=== PATIENT | male | born 1965 | race Caucasian/White ===

== ENCOUNTER 2016-09-18 11:07 | Emergency (ER) | payer MEDICAID ==
[~2016-09-18] VITALS: Ht 170.2 cm; Wt 65.0 kg
[~2016-09-18 11:07] MED LIST: HYDR-519 PO; LORA1TAB PO; NAP5EC PO; QUET50TA11 PO
[2016-09-18 11:23] VITALS: BP 110/71
== END 2016-09-18 15:51 | disposition left against medical advice (07) ==
LOC: EDBD → ER 12:27
DX: R52 Pain, unspecified (principal); Z53.21 Procedure and treatment not carried out due to patient leaving prior to being seen by health care provider

== ENCOUNTER 2016-09-19 18:36 | Emergency (ER) | payer MEDICAID ==
[~2016-09-19] VITALS: Ht 170.2 cm; Wt 64.0 kg
[2016-09-19] MEDS ORDERED: IBUPROFEN 600MG TABLET PO ONE (21:30)
[2016-09-19 22:30] VITALS: BP 118/73
== END 2016-09-19 22:31 | disposition home or self-care (01) ==
LOC: ER 20:32
DX: G89.29 Other chronic pain (principal); Z76.5 Malingerer [conscious simulation]; Z79.899 Other long term (current) drug therapy; I10 Essential (primary) hypertension; E11.9 Type 2 diabetes mellitus without complications; F41.9 Anxiety disorder, unspecified; F32.9 Major depressive disorder, single episode, unspecified; F12.10 Cannabis abuse, uncomplicated
CPT/HCPCS: 99282; 99283

== ENCOUNTER 2016-10-23 05:04 | Emergency (ER) | payer MEDICAID ==
[~2016-10-23] VITALS: Ht 170.2 cm; Wt 66.0 kg
[2016-10-23 05:13] VITALS: BP 164/115
== END 2016-10-23 05:52 | disposition left against medical advice (07) ==
LOC: ER 05:05
DX: Z53.21 Procedure and treatment not carried out due to patient leaving prior to being seen by health care provider (principal)

== ENCOUNTER 2016-10-28 03:26 | Emergency (ER) | payer MEDICAID ==
[~2016-10-28] VITALS: Ht 170.2 cm; Wt 66.8 kg
[2016-10-28 03:36] VITALS: BP 128/81
== END 2016-10-28 04:32 | disposition left against medical advice (07) ==
LOC: ER 03:26
DX: Z76.0 Encounter for issue of repeat prescription (principal); Z53.21 Procedure and treatment not carried out due to patient leaving prior to being seen by health care provider

== ENCOUNTER 2016-11-08 02:41 | Emergency (ER) | payer MEDICAID ==
[~2016-11-08] VITALS: Ht 170.2 cm; Wt 67.0 kg
[2016-11-08 03:27] VITALS: BP 120/75
== END 2016-11-08 03:30 | disposition left against medical advice (07) ==
LOC: ER 02:42
DX: M79.605 Pain in left leg (principal); I10 Essential (primary) hypertension; F12.10 Cannabis abuse, uncomplicated

== ENCOUNTER 2016-11-16 20:27 | Inpatient (IN) | payer MEDICAID, OTHER ==
[~2016-11-16] VITALS: Ht 170.2 cm; Wt 77.1 kg
[2016-11-16] MEDS ORDERED: IBUPROFEN 600MG TABLET PO ONE (21:30)
[2016-11-16 22:00] LABS: HEMATOCRIT. 27.3 % (42.0-52.0); HEMOGLOBIN. 8.8 g/dL (14.0-18.0); MEAN CORPUSCULAR HEMOGLOBIN 26.5 pg (28.0-32.0); MEAN CORPUSCULAR VOLUME 81.9 fL (80.0-94.0); MEAN PLATELET VOLUME 7.2 fl (7.4-10.4); RED BLOOD CELL COUNT 3.33 mill/uL (4.7-6.1)
[2016-11-16 22:02] LABS: PLATELET 1116 x1000/uL (130-400)
[2016-11-16 22:16] LABS: CARBON DIOXIDE 31 mEq/L (21-32); CHLORIDE 99 mEq/L (98-107); CREATINE KINASE MB FRACTION 1.7 ng/mL (0.5-3.6); ETHANOL BLOOD < 10 mg/dL
[2016-11-16 23:08] LABS: NUCLEATED RED BLOOD CELLS 7 /100 WBC; PLATELET ESTIMATE MARKEDLY INCREASED
[2016-11-16] MEDS ORDERED: SODIUM CHLORIDE 0.9% 1,000 ML IV ONE (23:15)
[2016-11-17] VITALS (7 sets, daily range): BP systolic 114–151; BP diastolic 75–99
[2016-11-17] MEDS ORDERED: MORPHINE SULFATE 2 MG/ML CPJ (NOT FOR IM USE) IV PRN (06:45)
[2016-11-17 09:09] LABS: PROTHROMBIN TIME 10.6 sec
[2016-11-17 09:24] LABS: HEMATOCRIT. 31.1 % (42.0-52.0); MEAN CORPUSCULAR HEMOGLOBIN 26.6 pg (28.0-32.0); MEAN CORPUSCULAR VOLUME 82.7 fL (80.0-94.0); MEAN PLATELET VOLUME 7.5 fl (7.4-10.4); RED BLOOD CELL COUNT 3.76 mill/uL (4.7-6.1); RED CELL DISTRIBUTION WIDTH 16.9 % (11.6-14.6)
[2016-11-17 09:25] LABS: CARBON DIOXIDE 30 mEq/L (21-32); CHLORIDE 101 mEq/L (98-107)
[2016-11-17] MEDS ORDERED: ALBU18HF2 * (09:25)
[2016-11-17] MEDS ORDERED: NIFE30TA94 PO (09:31)
[2016-11-17] MEDS ORDERED: HYDR-4134 PO (09:31)
[2016-11-17 10:28] LABS: NUCLEATED RED BLOOD CELLS 4 /100 WBC
[2016-11-17 10:30] LABS: PLATELET ESTIMATE MARKEDLY INCREASED
[2016-11-17 10:31] LABS: PLATELET 1171 x1000/uL (130-400)
[2016-11-17] MEDS: HYDROCODONE/ACETAMINOPHEN 10/325MG TABLET PO PRN ×2 (14:21→21:15)
[2016-11-17] MEDS: FAMOTIDINE 20MG TABLET PO SCH ×2 (17:24→21:13)
[2016-11-18] MEDS: HYDROCODONE/ACETAMINOPHEN 10/325MG TABLET PO PRN ×3 (03:51→23:28)
[2016-11-18 04:00] VITALS: BP 107/79
[2016-11-18 04:24] LABS: CLARITY URINE CLEAR (CLEAR); COLOR URINE YELLOW (YELLOW); GLUCOSE URINE NEGATIVE (NEGATIVE); KETONES URINE NEGATIVE (NEGATIVE); LEUKOCYTE ESTERASE URINE NEGATIVE (NEGATIVE); NITRITE URINE NEGATIVE (NEGATIVE); OCCULT BLOOD URINE NEGATIVE (NEGATIVE); PH URINE 7.5 (4.5-8.0); PROTEIN URINE NEGATIVE (NEGATIVE); SPECIFIC GRAVITY URINE 1.012 (1.005-1.030); UROBILINOGEN URINE 0.2 E.U./dL (0.2-1.0)
[2016-11-18 05:02] LABS: *AMPHETAMINES SCREEN URINE NEGATIVE (NEGATIVE); *BARBITURATES SCREEN URINE NEGATIVE (NEGATIVE); *BENZODIAZEPINES SCREEN URINE NEGATIVE (NEGATIVE); *COCAINE SCREEN URINE NEGATIVE (NEGATIVE); METHADONE URINE SCREEN NEGATIVE (NEGATIVE); OPIATES URINE SCREEN PRESUMTIVE POSITIVE (NEGATIVE); PHENCYCLIDINE URINE SCREEN NEGATIVE (NEGATIVE)
[2016-11-18 05:04] LABS: CANNABINOID URINE SCREEN NEGATIVE (NEGATIVE)
[2016-11-18 08:00] VITALS: BP 95/74
[2016-11-18] MEDS: FAMOTIDINE 20MG TABLET PO SCH ×2 (08:14→20:43)
[2016-11-18 12:00] VITALS: BP 111/92
[2016-11-18 12:09] LABS: HEMATOCRIT. 32.3 % (42.0-52.0); HEMOGLOBIN. 10.3 g/dL (14.0-18.0); MEAN CORPUSCULAR HEMOGLOBIN 26.6 pg (28.0-32.0); MEAN CORPUSCULAR VOLUME 83.3 fL (80.0-94.0); MEAN PLATELET VOLUME 7.4 fl (7.4-10.4); RED BLOOD CELL COUNT 3.88 mill/uL (4.7-6.1); RED CELL DISTRIBUTION WIDTH 16.9 % (11.6-14.6)
[2016-11-18 12:27] LABS: CHLORIDE 98 mEq/L (98-107)
[2016-11-18 12:32] LABS: PLATELET 1307 x1000/uL (130-400)
[2016-11-18 12:34] LABS: CARBON DIOXIDE 32 mEq/L (21-32)
[2016-11-18] MEDS: SODIUM CHLORIDE 0.9% 1,000 ML IV SCH (13:43)
[2016-11-18 14:09] LABS: NUCLEATED RED BLOOD CELLS 4 /100 WBC; PLATELET ESTIMATE MARKEDLY INCREASED
[2016-11-18 16:00] VITALS: BP 116/85
[2016-11-18 20:00] VITALS: BP 114/87
[2016-11-18] MEDS: MORPHINE SULFATE 2 MG/ML CPJ (NOT FOR IM USE) IV PRN (20:48)
[2016-11-19] VITALS: BP 148/97
[2016-11-19] MEDS: MORPHINE SULFATE 2 MG/ML CPJ (NOT FOR IM USE) IV PRN (01:04)
[2016-11-19 04:00] VITALS: BP 146/94
[2016-11-19 08:00] VITALS: BP 133/87
[2016-11-19] MEDS: FAMOTIDINE 20MG TABLET PO SCH (09:15)
[2016-11-19] MEDS: HYDROCODONE/ACETAMINOPHEN 10/325MG TABLET PO PRN ×3 (09:16→21:48)
[2016-11-19 12:00] VITALS: BP 132/86
[2016-11-19 16:00] VITALS: BP 122/87
[2016-11-19 20:00] VITALS: BP 138/92
[2016-11-19] MEDS: SODIUM CHLORIDE 0.9% 1,000 ML IV SCH (21:50)
[2016-11-20] VITALS: BP 147/104
[2016-11-20 04:00] VITALS: BP 148/104
[2016-11-20] MEDS: HYDROCODONE/ACETAMINOPHEN 10/325MG TABLET PO PRN ×4 (04:14→22:49)
[2016-11-20 08:00] VITALS: BP 135/91
[2016-11-20] MEDS: FAMOTIDINE 20MG TABLET PO SCH ×2 (09:25→21:16)
[2016-11-20] MEDS: SODIUM CHLORIDE 0.9% 1,000 ML IV SCH ×2 (09:25→18:57)
[2016-11-20 12:00] VITALS: BP 137/93
[2016-11-20 16:00] VITALS: BP 125/94
[2016-11-20 20:00] VITALS: BP 124/97
[2016-11-21] VITALS: BP 145/100
[2016-11-21 04:00] VITALS: BP 122/77
[2016-11-21] MEDS: HYDROCODONE/ACETAMINOPHEN 10/325MG TABLET PO PRN ×2 (04:38→12:06)
[2016-11-21] MEDS: SODIUM CHLORIDE 0.9% 1,000 ML IV SCH (04:41)
[2016-11-21 08:00] VITALS: BP 124/97
[2016-11-21] MEDS: FAMOTIDINE 20MG TABLET PO SCH (09:39)
[2016-11-21 12:00] VITALS: BP 153/100
[2016-11-21 14:56] VITALS: BP 153/100
== END 2016-11-21 15:40 | disposition home or self-care (01) | DRG 384 ==
LOC: ER 21:10 → 6EST 23:24
PROVIDERS: ADMIT Internal Medicine; ATTEND Internal Medicine
DX: S90.02XA Contusion of left ankle, initial encounter (principal); C95.90 Leukemia, unspecified not having achieved remission; E11.9 Type 2 diabetes mellitus without complications; I10 Essential (primary) hypertension; D47.3 Essential (hemorrhagic) thrombocythemia; F10.20 Alcohol dependence, uncomplicated; F17.210 Nicotine dependence, cigarettes, uncomplicated; K21.9 Gastro-esophageal reflux disease without esophagitis; R31.9 Hematuria, unspecified; R60.9 Edema, unspecified; F12.90 Cannabis use, unspecified, uncomplicated; M19.90 Unspecified osteoarthritis, unspecified site; Z60.2 Problems related to living alone; W19.XXXA Unspecified fall, initial encounter; Z71.51 Drug abuse counseling and surveillance of drug abuser; Z59.0 Homelessness; Z79.82 Long term (current) use of aspirin; Z87.442 Personal history of urinary calculi; Y93.89 Activity, other specified; Y92.89 Other specified places as the place of occurrence of the external cause; Y99.8 Other external cause status
CPT/HCPCS: 36415; 73590; 73610; 76770; 80048; 80053; 80305; 80307; 81003; 82553; 85025; 85610; 87086; 87186; 93971; 96361; 96374; 97162; 99285; A6261; G0482; J2270; J7030

== ENCOUNTER 2016-12-09 01:18 | Emergency (ER) | payer OTHER ==
[~2016-12-09] VITALS: Ht 160 cm; Wt 65.0 kg
[~2016-12-09 01:18] MED LIST changes: +ALBU18HF2 *; +HYDR-4134 PO; +NIFE30TA94 PO
[2016-12-09] MEDS ORDERED: HYDROCODONE/ACETAMINOPHEN 5/325MG TABLET PO ONE (04:15)
[2016-12-09 05:37] VITALS: BP 119/76
== END 2016-12-09 06:18 | disposition home or self-care (01) ==
LOC: ER 01:18
DX: Z76.0 Encounter for issue of repeat prescription (principal); G89.29 Other chronic pain
CPT/HCPCS: 99283

== ENCOUNTER 2016-12-10 00:17 | Emergency (ER) | payer OTHER ==
[~2016-12-10] VITALS: Ht 170.2 cm; Wt 65.0 kg
[2016-12-10 04:49] LABS: CLARITY URINE CLEAR (CLEAR); COLOR URINE YELLOW (YELLOW); GLUCOSE URINE NEGATIVE (NEGATIVE); KETONES URINE NEGATIVE (NEGATIVE); LEUKOCYTE ESTERASE URINE 1+ (NEGATIVE); NITRITE URINE NEGATIVE (NEGATIVE); OCCULT BLOOD URINE 2+ (NEGATIVE); PROTEIN URINE NEGATIVE (NEGATIVE); SPECIFIC GRAVITY URINE 1.021 (1.005-1.030); UROBILINOGEN URINE 0.2 E.U./dL (0.2-1.0)
[2016-12-10 05:17] VITALS: BP 128/81
== END 2016-12-10 07:02 | disposition home or self-care (01) ==
LOC: ER 06:57
DX: N39.0 Urinary tract infection, site not specified (principal); F12.10 Cannabis abuse, uncomplicated; M19.90 Unspecified osteoarthritis, unspecified site; C95.90 Leukemia, unspecified not having achieved remission; Z76.0 Encounter for issue of repeat prescription; Z87.442 Personal history of urinary calculi
CPT/HCPCS: 81001; 99283

== ENCOUNTER 2016-12-24 02:07 | Inpatient (IN) | payer OTHER ==
[~2016-12-24] VITALS: Ht 170.2 cm; Wt 61.8 kg
[2016-12-24 05:31] LABS: MEAN CORPUSCULAR HEMOGLOBIN 27.8 pg (28.0-32.0); MEAN CORPUSCULAR VOLUME 85.5 fL (80.0-94.0); PLATELET 849 x1000/uL (130-400); RED BLOOD CELL COUNT 2.08 mill/uL (4.7-6.1); RED CELL DISTRIBUTION WIDTH 20.7 % (11.6-14.6)
[2016-12-24 05:36] LABS: HEMATOCRIT. 17.8 % (42.0-52.0); HEMOGLOBIN. 5.8 g/dL (14.0-18.0); PROTHROMBIN TIME 10.3 sec
[2016-12-24] MEDS ORDERED: SODIUM CHLORIDE 0.9% 1,000 ML IV ONE (05:41)
[2016-12-24 05:43] LABS: CARBON DIOXIDE 28 mEq/L (21-32); CHLORIDE 103 mEq/L (98-107); ETHANOL BLOOD 166 mg/dL
[2016-12-24 06:14] LABS: PARTIAL THROMBOPLASTIN TIME 26.8 sec (24.0-34.0); PROTHROMBIN TIME 10.3 sec
[2016-12-24 06:22] LABS: NUCLEATED RED BLOOD CELLS 2 /100 WBC
[2016-12-24 06:23] LABS: PLATELET ESTIMATE MARKEDLY INCREASED
[2016-12-24] MEDS ORDERED: MORPHINE SULFATE 4 MG/ML CPJ (NOT FOR IM USE) IV ONE (07:45)
[2016-12-24 08:15] LABS: CLARITY URINE CLEAR (CLEAR); COLOR URINE YELLOW (YELLOW); GLUCOSE URINE NEGATIVE (NEGATIVE); KETONES URINE NEGATIVE (NEGATIVE); LEUKOCYTE ESTERASE URINE NEGATIVE (NEGATIVE); NITRITE URINE NEGATIVE (NEGATIVE); OCCULT BLOOD URINE NEGATIVE (NEGATIVE); PH URINE 5.5 (4.5-8.0); PROTEIN URINE NEGATIVE (NEGATIVE); SPECIFIC GRAVITY URINE 1.009 (1.005-1.030); UROBILINOGEN URINE 0.2 E.U./dL (0.2-1.0)
[2016-12-24 08:43] LABS: *AMPHETAMINES SCREEN URINE PRESUMTIVE POSITIVE (NEGATIVE); *BARBITURATES SCREEN URINE NEGATIVE (NEGATIVE); *BENZODIAZEPINES SCREEN URINE NEGATIVE (NEGATIVE); *COCAINE SCREEN URINE NEGATIVE (NEGATIVE); CANNABINOID URINE SCREEN PRESUMTIVE POSITIVE (NEGATIVE); METHADONE URINE SCREEN NEGATIVE (NEGATIVE); OPIATES URINE SCREEN NEGATIVE (NEGATIVE); PHENCYCLIDINE URINE SCREEN NEGATIVE (NEGATIVE)
[2016-12-24] MEDS ORDERED: IOHEXOL-300 100 ML BOTTLE ONE (11:21)
[2016-12-24] MEDS ORDERED: SODIUM CHLORIDE 0.9% 10ML VIAL ONE (11:21)
[2016-12-24] MEDS ORDERED: HYDROCODONE/APAP 7.5/325MG 1 TAB TABLET PO ONE (12:00)
[2016-12-24 16:30] VITALS: BP 120/81
[2016-12-24 16:43] VITALS: BP 120/81
[2016-12-24 17:57] VITALS: BP 121/80
[2016-12-24] MEDS ORDERED: IPRATROPIUM/ALBUTEROL 0.5-3(2.5)MG/3ML NEB INH PRN (18:30)
[2016-12-24] MEDS ORDERED: ACETAMINOPHEN 325MG TABLET PO PRN (18:30)
[2016-12-24] MEDS ORDERED: CLONIDINE 0.1MG TABLET PO PRN (18:30)
[2016-12-24] MEDS ORDERED: MAGNESIUM/ALUMINUM HYDROXIDE/SIMETHICONE 30ML UDC PO PRN (18:30)
[2016-12-24] MEDS ORDERED: ONDANSETRON HCL 4MG/2ML VIAL IV PRN (18:30)
[2016-12-24] MEDS ORDERED: ALBUTEROL 6.7GM HFA INHALER INH PRN (19:30)
[2016-12-24 20:00] VITALS: BP 117/81
[2016-12-24] MEDS: HYDROCODONE/ACETAMINOPHEN 10/325MG TABLET PO PRN (20:37)
[2016-12-24 21:48] LABS: TOTAL IRON BINDING CAPACITY 433 ug/dL (250-450)
[2016-12-24] MEDS: HYDRALAZINE HCL 25MG TABLET PO SCH (22:01)
[2016-12-24 22:21] LABS: HEPATITIS B SURFACE ANTIGEN NEGATIVE
[2016-12-24 22:49] LABS: HEPATITIS B CORE AB IGM NEGATIVE
[2016-12-24 22:50] LABS: HEPATITIS A AB IGM NEGATIVE (NEGATIVE)
[2016-12-25] VITALS: BP 121/77
[2016-12-25 00:07] LABS: CREATINE KINASE 37 IU/L (39-308); TROPONIN I < 0.02 ng/mL (0.00-0.04)
[2016-12-25 00:09] LABS: CREATINE KINASE MB FRACTION 1.8 ng/mL (0.5-3.6)
[2016-12-25 04:00] VITALS: BP 144/97
[2016-12-25] MEDS: HYDROCODONE/ACETAMINOPHEN 10/325MG TABLET PO PRN ×2 (04:19→13:49)
[2016-12-25] MEDS: HYDRALAZINE HCL 25MG TABLET PO SCH ×3 (06:19→21:53)
[2016-12-25 07:03] LABS: HEMATOCRIT. 25.5 % (42.0-52.0); HEMOGLOBIN. 8.3 g/dL (14.0-18.0); MEAN CORPUSCULAR VOLUME 82.5 fL (80.0-94.0); MEAN PLATELET VOLUME 7.3 fl (7.4-10.4); PLATELET 824 x1000/uL (130-400); RED BLOOD CELL COUNT 3.09 mill/uL (4.7-6.1); RED CELL DISTRIBUTION WIDTH 20.5 % (11.6-14.6)
[2016-12-25 07:25] LABS: CHLORIDE 100 mEq/L (98-107)
[2016-12-25 07:59] LABS: CARBON DIOXIDE 28 mEq/L (21-32); CREATINE KINASE 27 IU/L (39-308); CREATINE KINASE MB FRACTION 1.1 ng/mL (0.5-3.6); HDL CHOLESTEROL 68 mg/dL (40-59); LDL CHOLESTEROL 70 mg/dL (5-100); TROPONIN I < 0.02 ng/mL (0.00-0.04)
[2016-12-25 08:00] VITALS: BP 137/96
[2016-12-25] MEDS ORDERED: MEDICATION NOT ON FORMULARY EA (Nifedipine (Nifedipine Er) 1 TAB) PO SCH (09:00)
[2016-12-25] MEDS: QUETIAPINE FUMARATE 50MG TABLET PO SCH (09:58)
[2016-12-25] MEDS: FERROUS SULFATE 325MG TABLET PO SCH ×3 (09:58→17:37)
[2016-12-25] MEDS: NIFEDIPINE XL 30MG TAB PO SCH (09:58)
[2016-12-25 12:00] VITALS: BP 124/79
[2016-12-25 13:17] LABS: NUCLEATED RED BLOOD CELLS 1 /100 WBC; PLATELET ESTIMATE INCREASED
[2016-12-25 16:00] VITALS: BP 105/65
[2016-12-25 20:00] VITALS: BP 113/75
[2016-12-25] MEDS: HYDROCODONE/ACETAMINOPHEN 5/325MG TABLET PO PRN (21:54)
[2016-12-26] VITALS: BP 110/76
[2016-12-26] MEDS: HYDROCODONE/ACETAMINOPHEN 10/325MG TABLET PO PRN ×3 (01:06→16:38)
[2016-12-26 04:00] VITALS: BP 132/83
[2016-12-26] MEDS: FERROUS SULFATE 325MG TABLET PO SCH ×3 (06:16→16:38)
[2016-12-26] MEDS: HYDRALAZINE HCL 25MG TABLET PO SCH ×3 (06:17→21:45)
[2016-12-26 08:00] VITALS: BP 120/83
[2016-12-26] MEDS: NIFEDIPINE XL 30MG TAB PO SCH (08:11)
[2016-12-26] MEDS: QUETIAPINE FUMARATE 50MG TABLET PO SCH (08:12)
[2016-12-26 12:00] VITALS: BP 109/82
[2016-12-26 16:00] VITALS: BP 114/83
[2016-12-26 17:35] LABS: HEMATOCRIT. 25.6 % (42.0-52.0); HEMOGLOBIN. 8.6 g/dL (14.0-18.0); MEAN CORPUSCULAR HEMOGLOBIN 27.9 pg (28.0-32.0); MEAN CORPUSCULAR VOLUME 82.7 fL (80.0-94.0); MEAN PLATELET VOLUME 7.4 fl (7.4-10.4); PLATELET 784 x1000/uL (130-400); RED BLOOD CELL COUNT 3.09 mill/uL (4.7-6.1); RED CELL DISTRIBUTION WIDTH 19.5 % (11.6-14.6)
[2016-12-26 20:00] VITALS: BP 124/76
[2016-12-26 21:09] LABS: PLATELET ESTIMATE INCREASED
[2016-12-26] MEDS: HYDROCODONE/ACETAMINOPHEN 5/325MG TABLET PO PRN (21:45)
[2016-12-27] VITALS: BP 115/73
[2016-12-27] MEDS: LORAZEPAM 1MG TABLET PO PRN ×3 (03:11→21:51)
[2016-12-27 04:00] VITALS: BP 122/82
[2016-12-27 05:35] LABS: HEMATOCRIT. 26.7 % (42.0-52.0); HEMOGLOBIN. 8.6 g/dL (14.0-18.0); MEAN CORPUSCULAR HEMOGLOBIN 26.8 pg (28.0-32.0); MEAN CORPUSCULAR VOLUME 83.1 fL (80.0-94.0); MEAN PLATELET VOLUME 7.5 fl (7.4-10.4); PLATELET 838 x1000/uL (130-400); RED BLOOD CELL COUNT 3.21 mill/uL (4.7-6.1); RED CELL DISTRIBUTION WIDTH 19.9 % (11.6-14.6)
[2016-12-27 06:03] LABS: CARBON DIOXIDE 30 mEq/L (21-32); CHLORIDE 101 mEq/L (98-107)
[2016-12-27] MEDS: FERROUS SULFATE 325MG TABLET PO SCH ×3 (06:31→18:10)
[2016-12-27] MEDS: HYDRALAZINE HCL 25MG TABLET PO SCH ×3 (06:32→21:51)
[2016-12-27] MEDS: HYDROCODONE/ACETAMINOPHEN 10/325MG TABLET PO PRN ×3 (06:32→21:52)
[2016-12-27 08:00] VITALS: BP 129/94
[2016-12-27] MEDS: NIFEDIPINE XL 30MG TAB PO SCH (09:30)
[2016-12-27] MEDS: QUETIAPINE FUMARATE 50MG TABLET PO SCH (09:30)
[2016-12-27 12:00] VITALS: BP 104/74
[2016-12-27] MEDS: PANTOPRAZOLE SODIUM 40 MG/VIAL IV SCH ×2 (12:52→21:00)
[2016-12-27 14:41] LABS: NUCLEATED RED BLOOD CELLS 1 /100 WBC; PLATELET ESTIMATE INCREASED
[2016-12-27 16:00] VITALS: BP 106/72
[2016-12-27 20:00] VITALS: BP 112/70
[2016-12-28] VITALS: BP 120/65
[2016-12-28] MEDS: LORAZEPAM 1MG TABLET PO PRN (02:16)
[2016-12-28] MEDS: HYDROCODONE/ACETAMINOPHEN 10/325MG TABLET PO PRN (02:16)
[2016-12-28 04:00] VITALS: BP 115/72
[2016-12-28] MEDS: HYDRALAZINE HCL 25MG TABLET PO SCH (06:00)
[2016-12-28 06:03] LABS: HEMATOCRIT. 26.5 % (42.0-52.0); HEMOGLOBIN. 8.6 g/dL (14.0-18.0); MEAN CORPUSCULAR VOLUME 83.6 fL (80.0-94.0); MEAN PLATELET VOLUME 7.5 fl (7.4-10.4); PLATELET 809 x1000/uL (130-400); RED BLOOD CELL COUNT 3.18 mill/uL (4.7-6.1); RED CELL DISTRIBUTION WIDTH 20.3 % (11.6-14.6)
[2016-12-28 06:20] LABS: CARBON DIOXIDE 27 mEq/L (21-32); CHLORIDE 101 mEq/L (98-107)
[2016-12-28] MEDS: FERROUS SULFATE 325MG TABLET PO SCH (07:00)
[2016-12-28] MEDS: HYDROCODONE/ACETAMINOPHEN 5/325MG TABLET PO PRN (07:01)
[2016-12-28 08:00] VITALS: BP 133/94
[2016-12-28] MEDS: PANTOPRAZOLE SODIUM 40 MG/VIAL IV SCH (08:49)
[2016-12-28 09:41] LABS: PLATELET ESTIMATE INCREASED
== END 2016-12-28 08:40 | disposition left against medical advice (07) | DRG 691 ==
LOC: ER 06:15 → CANBEDREQ 13:24 → 5WST 14:12 → ENRESERV 15:20
PROVIDERS: ADMIT Internal Medicine; ATTEND Internal Medicine
PROC: 30233N1 Transfusion of Nonautologous Red Blood Cells into Peripheral Vein, Percutaneous Approach (ICD-10-PCS; principal; 2016-12-24)
DX: C92.10 Chronic myeloid leukemia, BCR/ABL-positive, not having achieved remission (principal); I10 Essential (primary) hypertension; D50.9 Iron deficiency anemia, unspecified; F17.210 Nicotine dependence, cigarettes, uncomplicated; F10.129 Alcohol abuse with intoxication, unspecified; G89.29 Other chronic pain; J45.909 Unspecified asthma, uncomplicated; K21.9 Gastro-esophageal reflux disease without esophagitis; R30.0 Dysuria; D47.3 Essential (hemorrhagic) thrombocythemia; M19.90 Unspecified osteoarthritis, unspecified site; Z53.21 Procedure and treatment not carried out due to patient leaving prior to being seen by health care provider; K29.70 Gastritis, unspecified, without bleeding; Z59.0 Homelessness; Z87.442 Personal history of urinary calculi
CPT/HCPCS: 36415; 36430; 71010; 74177; 76770; 80048; 80053; 80061; 80305; 81003; 82270; 82550; 82553; 82728; 83540; 83550; 83690; 84153; 84443; 84484; 85025; 85044; 85610; 85730; 86705; 86709; 86803; 86850; 86900; 86920; 87040; 87086; 87340; 93005; 93970; 96361; 96374; 99285; A4216; C9113; G0482; J2270; J7030; J7040; P9016; Q9967

== ENCOUNTER 2016-12-31 | Emergency (ER) | payer OTHER ==
[~2016-12-31] VITALS: Ht 165.1 cm; Wt 69.0 kg
[2016-12-31 00:50] VITALS: BP 141/84
== END 2016-12-31 04:30 | disposition left against medical advice (07) ==
LOC: ER
DX: Z53.21 Procedure and treatment not carried out due to patient leaving prior to being seen by health care provider (principal)

== ENCOUNTER 2017-01-01 21:38 | Emergency (ER) | payer OTHER ==
[~2017-01-01] VITALS: Ht 170.2 cm; Wt 64.0 kg
[2017-01-01] MEDS ORDERED: HYDROCODONE/ACETAMINOPHEN 10/325MG TABLET PO ONE (23:30)
[2017-01-01 23:34] LABS: HEMOGLOBIN. 9.5 g/dL (14.0-18.0); MEAN PLATELET VOLUME 7.2 fl (7.4-10.4); RED BLOOD CELL COUNT 3.53 mill/uL (4.7-6.1); RED CELL DISTRIBUTION WIDTH 18.6 % (11.6-14.6)
[2017-01-01 23:36] LABS: PLATELET 1137 x1000/uL (130-400)
[2017-01-01 23:38] LABS: CHLORIDE 102 mEq/L (98-107)
[2017-01-01 23:41] LABS: PROTHROMBIN TIME 10.7 sec
[2017-01-01 23:46] LABS: CARBON DIOXIDE 31 mEq/L (21-32)
[2017-01-02 04:12] VITALS: BP 126/80
[2017-01-02 04:14] LABS: PLATELET ESTIMATE INCREASED
== END 2017-01-02 04:16 | disposition home or self-care (01) ==
LOC: ER 23:07
DX: R52 Pain, unspecified (principal); D64.9 Anemia, unspecified; F12.10 Cannabis abuse, uncomplicated; I10 Essential (primary) hypertension; C95.90 Leukemia, unspecified not having achieved remission; Z87.442 Personal history of urinary calculi
CPT/HCPCS: 36415; 80053; 85025; 85610; 99284; Z7610

== ENCOUNTER 2017-01-03 10:13 | Emergency (ER) | payer OTHER ==
[~2017-01-03] VITALS: Ht 170.2 cm; Wt 64.0 kg
[~2017-01-03 10:13] MED LIST changes: +QUET50TA PO; -QUET50TA11 PO
[2017-01-03 11:08] VITALS: BP 144/86
[2017-01-03] MEDS ORDERED: TRAMADOL 50MG TABLET PO ONE (11:15)
== END 2017-01-03 13:30 | disposition home or self-care (01) ==
LOC: ER 13:24
DX: M10.9 Gout, unspecified (principal); I10 Essential (primary) hypertension; F12.10 Cannabis abuse, uncomplicated; D64.9 Anemia, unspecified; Z87.442 Personal history of urinary calculi
CPT/HCPCS: 99282

== ENCOUNTER 2017-01-06 23:58 | Emergency (ER) | payer OTHER ==
[~2017-01-06] VITALS: Ht 170.2 cm; Wt 65.0 kg
[~2017-01-06 23:58] MED LIST changes: -QUET50TA PO; +QUET50TA11 PO
[2017-01-07] MEDS ORDERED: ONDANSETRON HCL 4MG/2ML VIAL IV ONE (03:15)
[2017-01-07] MEDS ORDERED: MORPHINE SULFATE 4 MG/ML CPJ (NOT FOR IM USE) IV ONE (03:15)
[2017-01-07 03:36] LABS: HEMOGLOBIN. 8.2 g/dL (14.0-18.0); MEAN CORPUSCULAR HEMOGLOBIN 25.6 pg (28.0-32.0); MEAN CORPUSCULAR VOLUME 81.6 fL (80.0-94.0); MEAN PLATELET VOLUME 6.9 fl (7.4-10.4); RED BLOOD CELL COUNT 3.19 mill/uL (4.7-6.1); RED CELL DISTRIBUTION WIDTH 18.8 % (11.6-14.6)
[2017-01-07 03:42] LABS: PLATELET 1248 x1000/uL (130-400)
[2017-01-07 03:48] LABS: CARBON DIOXIDE 26 mEq/L (21-32); CHLORIDE 100 mEq/L (98-107); ETHANOL BLOOD 131 mg/dL
[2017-01-07] MEDS ORDERED: SODIUM CHLORIDE 0.9% 1,000 ML IV ONE (03:48)
[2017-01-07 04:25] LABS: NUCLEATED RED BLOOD CELLS 1 /100 WBC; PLATELET ESTIMATE MARKEDLY INCREASED
[2017-01-07 04:50] VITALS: BP 130/85
== END 2017-01-07 05:10 | disposition home or self-care (01) ==
LOC: ER 23:58
DX: M89.8X8 Other specified disorders of bone, other site (principal); C95.90 Leukemia, unspecified not having achieved remission; Z87.442 Personal history of urinary calculi; F17.200 Nicotine dependence, unspecified, uncomplicated; F12.10 Cannabis abuse, uncomplicated; Z98.890 Other specified postprocedural states
CPT/HCPCS: 36415; 80048; 83605; 85025; 96374; 96375; 99284; G0482; J2270; J2405; J7030; Z7610

== ENCOUNTER 2017-01-08 01:33 | Emergency (ER) | payer OTHER ==
[~2017-01-08] VITALS: Ht 170.2 cm; Wt 65.0 kg
[2017-01-08 01:41] VITALS: BP 123/78
== END 2017-01-08 08:04 | disposition left against medical advice (07) ==
LOC: ER 07:59
DX: Z76.0 Encounter for issue of repeat prescription (principal); Z53.21 Procedure and treatment not carried out due to patient leaving prior to being seen by health care provider

== ENCOUNTER 2017-01-12 10:18 | Emergency (ER) | payer OTHER ==
[~2017-01-12] VITALS: Ht 167.6 cm; Wt 73.0 kg
[2017-01-12 11:01] VITALS: BP 145/91
== END 2017-01-12 15:25 | disposition left against medical advice (07) ==
LOC: ER 15:23
DX: Z76.0 Encounter for issue of repeat prescription (principal); Z53.21 Procedure and treatment not carried out due to patient leaving prior to being seen by health care provider

== ENCOUNTER 2017-01-13 01:33 | Emergency (ER) | payer OTHER ==
[~2017-01-13] VITALS: Ht 170.2 cm; Wt 64.0 kg
[2017-01-13 02:15] VITALS: BP 146/94
== END 2017-01-13 04:30 | disposition left against medical advice (07) ==
LOC: ER 01:33
DX: Z53.21 Procedure and treatment not carried out due to patient leaving prior to being seen by health care provider (principal)

== ENCOUNTER 2017-01-17 14:07 | Emergency (ER) | payer OTHER ==
[~2017-01-17] VITALS: Ht 170.2 cm; Wt 65.0 kg
[2017-01-17 15:05] VITALS: BP 124/81
== END 2017-01-17 18:03 | disposition left against medical advice (07) ==
LOC: ER 14:07
DX: R10.9 Unspecified abdominal pain (principal); Z53.21 Procedure and treatment not carried out due to patient leaving prior to being seen by health care provider

== ENCOUNTER 2017-01-20 03:13 | Emergency (ER) | payer OTHER ==
[~2017-01-20] VITALS: Ht 170.2 cm; Wt 65.0 kg
[2017-01-20 04:00] VITALS: BP 139/97
== END 2017-01-20 06:40 | disposition left against medical advice (07) ==
LOC: ER 03:13
DX: R52 Pain, unspecified (principal); R30.0 Dysuria; R31.9 Hematuria, unspecified; Z53.21 Procedure and treatment not carried out due to patient leaving prior to being seen by health care provider

== ENCOUNTER 2017-01-22 02:46 | Emergency (ER) | payer OTHER ==
[~2017-01-22] VITALS: Ht 170.2 cm; Wt 67.0 kg
[2017-01-22 03:31] VITALS: BP 147/101
== END 2017-01-22 06:05 | disposition left against medical advice (07) ==
LOC: ER 02:46
DX: R10.9 Unspecified abdominal pain (principal); Z53.21 Procedure and treatment not carried out due to patient leaving prior to being seen by health care provider
CPT/HCPCS: Z7610 ×2

== ENCOUNTER 2017-01-26 01:22 | Emergency (ER) | payer OTHER ==
[~2017-01-26] VITALS: Ht 170.2 cm; Wt 64.0 kg
[2017-01-26] MEDS ORDERED: MORPHINE SULFATE 4 MG/ML CPJ (NOT FOR IM USE) IV STA (03:27)
[2017-01-26] MEDS ORDERED: SODIUM CHLORIDE 0.9% 1,000 ML IV ONE (03:27)
[2017-01-26] MEDS ORDERED: ONDANSETRON HCL 4MG/2ML VIAL IV STA (03:27)
[2017-01-26 03:48] LABS: HEMATOCRIT. 28.4 % (42.0-52.0); MEAN CORPUSCULAR VOLUME 79.4 fL (80.0-94.0); MEAN PLATELET VOLUME 7.2 fl (7.4-10.4); PLATELET 534 x1000/uL (130-400); RED BLOOD CELL COUNT 3.58 mill/uL (4.7-6.1); RED CELL DISTRIBUTION WIDTH 22.2 % (11.6-14.6)
[2017-01-26 04:00] LABS: CARBON DIOXIDE 26 mEq/L (21-32); CHLORIDE 102 mEq/L (98-107)
[2017-01-26 04:39] LABS: NUCLEATED RED BLOOD CELLS 7 /100 WBC
[2017-01-26 04:40] LABS: PLATELET ESTIMATE INCREASED
[2017-01-26 04:57] LABS: CLARITY URINE CLEAR (CLEAR); COLOR URINE YELLOW (YELLOW); GLUCOSE URINE NEGATIVE (NEGATIVE); KETONES URINE NEGATIVE (NEGATIVE); LEUKOCYTE ESTERASE URINE NEGATIVE (NEGATIVE); NITRITE URINE NEGATIVE (NEGATIVE); OCCULT BLOOD URINE TRACE (NEGATIVE); PH URINE 5.5 (4.5-8.0); PROTEIN URINE NEGATIVE (NEGATIVE); SPECIFIC GRAVITY URINE 1.009 (1.005-1.030); UROBILINOGEN URINE 0.2 E.U./dL (0.2-1.0)
[2017-01-26] MEDS ORDERED: HYDROCODONE/ACETAMINOPHEN 5/325MG TABLET PO ONE (07:15)
[2017-01-26 10:24] VITALS: BP 124/70
== END 2017-01-26 10:43 | disposition short-term general hospital (02) ==
LOC: ER 01:22
DX: C92.10 Chronic myeloid leukemia, BCR/ABL-positive, not having achieved remission (principal); D72.829 Elevated white blood cell count, unspecified; F17.210 Nicotine dependence, cigarettes, uncomplicated; Z59.0 Homelessness
CPT/HCPCS: 36415; 80053; 81001; 85025; 96361; 96374; 96375; 99285; J2270; J2405; J7030; Z7610

== ENCOUNTER 2017-01-30 03:14 | Emergency (ER) | payer OTHER ==
[~2017-01-30] VITALS: Ht 170.2 cm; Wt 65.0 kg
[2017-01-30 05:05] VITALS: BP 126/84
== END 2017-01-30 06:09 | disposition left against medical advice (07) ==
LOC: ER 03:14
DX: R50.9 Fever, unspecified (principal); Z53.21 Procedure and treatment not carried out due to patient leaving prior to being seen by health care provider

== ENCOUNTER 2017-01-30 12:46 | Emergency (ER) | payer OTHER ==
[~2017-01-30] VITALS: Ht 172.7 cm; Wt 70.0 kg
[2017-01-30] MEDS ORDERED: HYDROCODONE/ACETAMINOPHEN 10/325MG TABLET PO ONE (13:45)
[2017-01-30 13:50] VITALS: BP 146/91
== END 2017-01-30 15:19 | disposition home or self-care (01) ==
LOC: ER 14:57
DX: G89.29 Other chronic pain (principal); M19.90 Unspecified osteoarthritis, unspecified site; C95.90 Leukemia, unspecified not having achieved remission; F17.200 Nicotine dependence, unspecified, uncomplicated; F12.10 Cannabis abuse, uncomplicated; I10 Essential (primary) hypertension; M10.9 Gout, unspecified; Z87.442 Personal history of urinary calculi
CPT/HCPCS: 99282

== ENCOUNTER 2017-02-01 00:26 | Emergency (ER) | payer OTHER ==
[~2017-02-01] VITALS: Ht 170.2 cm; Wt 64.1 kg
[2017-02-01 02:40] VITALS: BP 127/71
== END 2017-02-01 07:48 | disposition left against medical advice (07) ==
LOC: ER 00:26
DX: Z53.21 Procedure and treatment not carried out due to patient leaving prior to being seen by health care provider (principal); F17.210 Nicotine dependence, cigarettes, uncomplicated; F12.10 Cannabis abuse, uncomplicated

== ENCOUNTER 2017-02-01 13:29 | Emergency (ER) | payer OTHER ==
[~2017-02-01] VITALS: Ht 170.2 cm; Wt 64.1 kg
[2017-02-01 13:50] VITALS: BP 144/99
== END 2017-02-01 20:00 | disposition left against medical advice (07) ==
LOC: ER 19:42
DX: Z53.21 Procedure and treatment not carried out due to patient leaving prior to being seen by health care provider (principal); F12.10 Cannabis abuse, uncomplicated; F17.210 Nicotine dependence, cigarettes, uncomplicated

== ENCOUNTER 2017-02-03 11:14 | Emergency (ER) | payer OTHER ==
[~2017-02-03] VITALS: Ht 170.2 cm; Wt 64.0 kg
[2017-02-03] MEDS ORDERED: HYDROCODONE/APAP 7.5/325MG 1 TAB TABLET PO ONE (12:30)
[2017-02-03 13:14] VITALS: BP 158/95
[2017-02-03 13:47] LABS: CLARITY URINE CLEAR (CLEAR); COLOR URINE YELLOW (YELLOW); GLUCOSE URINE NEGATIVE (NEGATIVE); KETONES URINE NEGATIVE (NEGATIVE); LEUKOCYTE ESTERASE URINE NEGATIVE (NEGATIVE); NITRITE URINE NEGATIVE (NEGATIVE); OCCULT BLOOD URINE TRACE (NEGATIVE); PH URINE 6.5 (4.5-8.0); PROTEIN URINE NEGATIVE (NEGATIVE); SPECIFIC GRAVITY URINE 1.014 (1.005-1.030); UROBILINOGEN URINE 0.2 E.U./dL (0.2-1.0)
[2017-02-03 14:22] LABS: *AMPHETAMINES SCREEN URINE PRESUMTIVE POSITIVE (NEGATIVE); *BARBITURATES SCREEN URINE NEGATIVE (NEGATIVE); *BENZODIAZEPINES SCREEN URINE NEGATIVE (NEGATIVE); *COCAINE SCREEN URINE NEGATIVE (NEGATIVE); CANNABINOID URINE SCREEN PRESUMTIVE POSITIVE (NEGATIVE); METHADONE URINE SCREEN NEGATIVE (NEGATIVE); OPIATES URINE SCREEN NEGATIVE (NEGATIVE); PHENCYCLIDINE URINE SCREEN NEGATIVE (NEGATIVE)
== END 2017-02-03 14:39 | disposition home or self-care (01) ==
LOC: ER 13:36
DX: G89.3 Neoplasm related pain (acute) (chronic) (principal); C92.10 Chronic myeloid leukemia, BCR/ABL-positive, not having achieved remission; M79.672 Pain in left foot; M79.671 Pain in right foot; R30.0 Dysuria; Z76.0 Encounter for issue of repeat prescription; Z79.899 Other long term (current) drug therapy; Z98.890 Other specified postprocedural states; I10 Essential (primary) hypertension; E78.00 Pure hypercholesterolemia, unspecified; Z87.39 Personal history of other diseases of the musculoskeletal system and connective tissue
CPT/HCPCS: 80305; 81001; 99284; Z7610

== ENCOUNTER 2017-02-08 18:57 | Emergency (ER) | payer OTHER ==
[~2017-02-08] VITALS: Ht 170.2 cm; Wt 65.0 kg
[2017-02-08] MEDS ORDERED: HYDROCODONE/ACETAMINOPHEN 5/325MG TABLET PO ONE (22:00)
[2017-02-08 22:21] VITALS: BP 119/89
[2017-02-08 22:27] LABS: CLARITY URINE CLEAR (CLEAR); COLOR URINE YELLOW (YELLOW); GLUCOSE URINE NEGATIVE (NEGATIVE); KETONES URINE TRACE (NEGATIVE); LEUKOCYTE ESTERASE URINE NEGATIVE (NEGATIVE); NITRITE URINE NEGATIVE (NEGATIVE); OCCULT BLOOD URINE NEGATIVE (NEGATIVE); PROTEIN URINE NEGATIVE (NEGATIVE); SPECIFIC GRAVITY URINE 1.025 (1.005-1.030)
[2017-02-08 22:32] LABS: *AMPHETAMINES SCREEN URINE PRESUMTIVE POSITIVE (NEGATIVE); *BARBITURATES SCREEN URINE NEGATIVE (NEGATIVE); *BENZODIAZEPINES SCREEN URINE NEGATIVE (NEGATIVE); *COCAINE SCREEN URINE NEGATIVE (NEGATIVE); CANNABINOID URINE SCREEN PRESUMTIVE POSITIVE (NEGATIVE); METHADONE URINE SCREEN NEGATIVE (NEGATIVE); OPIATES URINE SCREEN PRESUMTIVE POSITIVE (NEGATIVE); PHENCYCLIDINE URINE SCREEN NEGATIVE (NEGATIVE)
== END 2017-02-09 00:30 | disposition home or self-care (01) ==
LOC: ER 18:57
DX: G89.29 Other chronic pain (principal); M10.9 Gout, unspecified; F12.10 Cannabis abuse, uncomplicated; F15.10 Other stimulant abuse, uncomplicated; F11.10 Opioid abuse, uncomplicated; J45.909 Unspecified asthma, uncomplicated; Z85.79 Personal history of other malignant neoplasms of lymphoid, hematopoietic and related tissues
CPT/HCPCS: 80305; 81003; 99284

== ENCOUNTER 2017-02-10 00:47 | Emergency (ER) | payer OTHER ==
[~2017-02-10] VITALS: Ht 170.2 cm; Wt 65.0 kg
[2017-02-10 00:55] VITALS: BP 134/85
== END 2017-02-10 03:00 | disposition left against medical advice (07) ==
LOC: ER 00:47
DX: Z53.21 Procedure and treatment not carried out due to patient leaving prior to being seen by health care provider (principal); M19.90 Unspecified osteoarthritis, unspecified site; I10 Essential (primary) hypertension; F12.10 Cannabis abuse, uncomplicated

== ENCOUNTER 2017-02-14 02:06 | Emergency (ER) | payer OTHER ==
[~2017-02-14] VITALS: Ht 172.7 cm; Wt 69.0 kg
[2017-02-14] MEDS ORDERED: KETOROLAC 60MG/2ML VIAL IM ONE (07:15)
[2017-02-14 07:30] LABS: CLARITY URINE CLEAR (CLEAR); COLOR URINE YELLOW (YELLOW); GLUCOSE URINE NEGATIVE (NEGATIVE); KETONES URINE NEGATIVE (NEGATIVE); LEUKOCYTE ESTERASE URINE NEGATIVE (NEGATIVE); NITRITE URINE NEGATIVE (NEGATIVE); OCCULT BLOOD URINE NEGATIVE (NEGATIVE); PH URINE 6.5 (4.5-8.0); PROTEIN URINE NEGATIVE (NEGATIVE); SPECIFIC GRAVITY URINE 1.012 (1.005-1.030); UROBILINOGEN URINE 0.2 E.U./dL (0.2-1.0)
[2017-02-14 07:43] LABS: HEMATOCRIT 26.5 % (42.0-52.0); HEMOGLOBIN 8.5 g/dL (14.0-18.0); MEAN CORPUSCULAR HEMOGLOBIN 25.6 pg (28.0-32.0); MEAN CORPUSCULAR VOLUME 79.7 fL (80.0-94.0); PLATELET 532 x1000/uL (130-400); RED BLOOD CELL COUNT 3.32 mill/uL (4.7-6.1); RED CELL DISTRIBUTION WIDTH 21.6 % (11.6-14.6)
[2017-02-14 07:51] LABS: CARBON DIOXIDE 28 mEq/L (21-32); CHLORIDE 100 mEq/L (98-107)
[2017-02-14 07:55] VITALS: BP_DIAS 63
[2017-02-14 09:24] VITALS: BP_SYST 108
== END 2017-02-14 09:27 | disposition home or self-care (01) ==
LOC: ER 02:06
DX: G89.29 Other chronic pain (principal); F17.200 Nicotine dependence, unspecified, uncomplicated; F12.10 Cannabis abuse, uncomplicated; M19.90 Unspecified osteoarthritis, unspecified site; C95.90 Leukemia, unspecified not having achieved remission
CPT/HCPCS: 36415; 80053; 81003; 85027; 96372; 99284; J1885; Z7610

== ENCOUNTER 2017-02-19 00:18 | Emergency (ER) | payer OTHER ==
[~2017-02-19] VITALS: Ht 170.2 cm; Wt 69.0 kg
[~2017-02-19 00:18] MED LIST changes: +QUET50TA PO; -QUET50TA11 PO
[2017-02-19 02:23] VITALS: BP 127/76
== END 2017-02-19 04:40 | disposition left against medical advice (07) ==
LOC: ER 00:18
DX: M79.606 Pain in leg, unspecified (principal); Z53.21 Procedure and treatment not carried out due to patient leaving prior to being seen by health care provider

== ENCOUNTER 2017-03-02 22:28 | Emergency (ER) | payer OTHER ==
[~2017-03-02] VITALS: Ht 172.7 cm; Wt 68.0 kg
[2017-03-02 23:32] VITALS: BP 139/94
== END 2017-03-03 00:30 | disposition left against medical advice (07) ==
LOC: ER 22:28
DX: R10.9 Unspecified abdominal pain (principal); Z53.21 Procedure and treatment not carried out due to patient leaving prior to being seen by health care provider

== ENCOUNTER 2017-03-08 00:32 | Emergency (ER) | payer MEDICAID, OTHER | END 2017-03-08 01:50 | disposition left against medical advice (07) | LOC: ER 00:32 | DX: R10.9 Unspecified abdominal pain (principal); Z53.21 Procedure and treatment not carried out due to patient leaving prior to being seen by health care provider ==

== ENCOUNTER 2017-03-20 03:41 | Emergency (ER) | payer OTHER ==
[~2017-03-20] VITALS: Ht 170.2 cm; Wt 64.0 kg
[2017-03-20] MEDS ORDERED: SODIUM CHLORIDE 0.9% 1,000 ML IV ONE (06:45)
[2017-03-20] MEDS ORDERED: KETOROLAC 30MG/ML VIAL IV ONE (06:45)
[2017-03-20 07:12] LABS: HEMATOCRIT. 30.3 % (42.0-52.0); HEMOGLOBIN. 9.5 g/dL (14.0-18.0); MEAN CORPUSCULAR HEMOGLOBIN 24.3 pg (28.0-32.0); MEAN CORPUSCULAR VOLUME 77.2 fL (80.0-94.0); MEAN PLATELET VOLUME 7.1 fl (7.4-10.4); RED BLOOD CELL COUNT 3.92 mill/uL (4.7-6.1); RED CELL DISTRIBUTION WIDTH 21.8 % (11.6-14.6)
[2017-03-20 07:13] LABS: CARBON DIOXIDE 26 mEq/L (21-32); CHLORIDE 105 mEq/L (98-107)
[2017-03-20 07:18] LABS: PLATELET 1224 x1000/uL (130-400)
[2017-03-20 09:08] LABS: CLARITY URINE CLEAR (CLEAR); COLOR URINE DARK YELLOW (YELLOW); GLUCOSE URINE NEGATIVE (NEGATIVE); KETONES URINE TRACE (NEGATIVE); LEUKOCYTE ESTERASE URINE TRACE (NEGATIVE); NITRITE URINE NEGATIVE (NEGATIVE); OCCULT BLOOD URINE TRACE (NEGATIVE); PROTEIN URINE 1+ (NEGATIVE); SPECIFIC GRAVITY URINE 1.034 (1.005-1.030)
[2017-03-20 09:30] VITALS: BP 110/68
[2017-03-20 09:31] LABS: PLATELET ESTIMATE MARKEDLY INCREASED
[2017-03-20] MEDS ORDERED: VANCOMYCIN 1 G PREMIX 200 ML IV SCH (11:00)
== END 2017-03-20 10:58 | disposition left against medical advice (07) ==
LOC: ER 05:49 → CANRESERV 17:26 → ENRESERV 17:26 → CANBEDREQ 17:36
DX: D75.89 Other specified diseases of blood and blood-forming organs (principal); N20.0 Calculus of kidney
CPT/HCPCS: 36415; 74176; 80048; 81001; 85025; 96361; 96374; 99285; J1885; J7030; Z7610

== ENCOUNTER 2017-03-25 23:40 | Emergency (ER) | payer OTHER ==
[~2017-03-25] VITALS: Ht 170.2 cm; Wt 65.0 kg
[2017-03-26 00:22] VITALS: BP 140/85
== END 2017-03-26 02:30 | disposition left against medical advice (07) ==
LOC: ER 23:40
DX: Z00.8 Encounter for other general examination (principal); Z53.21 Procedure and treatment not carried out due to patient leaving prior to being seen by health care provider

== ENCOUNTER 2017-03-28 22:52 | Emergency (ER) | payer OTHER ==
[~2017-03-28] VITALS: Ht 170.2 cm; Wt 61.0 kg
[2017-03-29 04:25] LABS: HEMATOCRIT. 26.7 % (42.0-52.0); HEMOGLOBIN. 8.6 g/dL (14.0-18.0); MEAN CORPUSCULAR HEMOGLOBIN 24.7 pg (28.0-32.0); MEAN CORPUSCULAR VOLUME 76.4 fL (80.0-94.0); MEAN PLATELET VOLUME 6.5 fl (7.4-10.4); PLATELET 655 x1000/uL (130-400); RED CELL DISTRIBUTION WIDTH 22.1 % (11.6-14.6)
[2017-03-29 04:27] LABS: PROTHROMBIN TIME 10.5 sec (9.4-11.6)
[2017-03-29 04:35] LABS: CARBON DIOXIDE 24 mEq/L (21-32); CHLORIDE 111 mEq/L (98-107); ETHANOL BLOOD < 10 mg/dL
[2017-03-29] MEDS ORDERED: TRAMADOL 50MG TABLET PO ONE (05:45)
[2017-03-29 06:20] VITALS: BP 133/79
[2017-03-29 07:11] LABS: GLUCOSE URINE NEGATIVE (NEGATIVE); KETONES URINE 2+ (NEGATIVE); LEUKOCYTE ESTERASE URINE NEGATIVE (NEGATIVE); NITRITE URINE NEGATIVE (NEGATIVE); OCCULT BLOOD URINE NEGATIVE (NEGATIVE); PH URINE 5.5 (4.5-8.0); PROTEIN URINE NEGATIVE (NEGATIVE); SPECIFIC GRAVITY URINE 1.019 (1.005-1.030); UROBILINOGEN URINE 0.2 E.U./dL (0.2-1.0)
[2017-03-29 07:12] LABS: CLARITY URINE CLEAR (CLEAR); COLOR URINE YELLOW (YELLOW)
[2017-03-29 07:56] LABS: *AMPHETAMINES SCREEN URINE PRESUMTIVE POSITIVE (NEGATIVE); *BARBITURATES SCREEN URINE NEGATIVE (NEGATIVE); *BENZODIAZEPINES SCREEN URINE NEGATIVE (NEGATIVE); *COCAINE SCREEN URINE NEGATIVE (NEGATIVE); CANNABINOID URINE SCREEN PRESUMTIVE POSITIVE (NEGATIVE); METHADONE URINE SCREEN NEGATIVE (NEGATIVE); OPIATES URINE SCREEN NEGATIVE (NEGATIVE); PHENCYCLIDINE URINE SCREEN NEGATIVE (NEGATIVE)
[2017-03-29 08:17] LABS: PLATELET ESTIMATE MARKEDLY INCREASED
== END 2017-03-29 06:30 | disposition home or self-care (01) ==
LOC: ER 23:42
DX: M19.90 Unspecified osteoarthritis, unspecified site (principal); I10 Essential (primary) hypertension; F17.210 Nicotine dependence, cigarettes, uncomplicated; F12.10 Cannabis abuse, uncomplicated; Z87.19 Personal history of other diseases of the digestive system; Z85.79 Personal history of other malignant neoplasms of lymphoid, hematopoietic and related tissues
CPT/HCPCS: 36415; 80053; 80305; 81003; 85025; 85610; 93005; 99285; G0482

== ENCOUNTER 2017-04-12 21:14 | Emergency (ER) | payer OTHER ==
[~2017-04-12] VITALS: Ht 170.2 cm; Wt 71.0 kg
[2017-04-13] MEDS ORDERED: KETOROLAC 60MG/2ML VIAL IM ONE (02:45)
[2017-04-13 02:46] LABS: CLARITY URINE CLEAR (CLEAR); COLOR URINE YELLOW (YELLOW); GLUCOSE URINE NEGATIVE (NEGATIVE); KETONES URINE NEGATIVE (NEGATIVE); LEUKOCYTE ESTERASE URINE TRACE (NEGATIVE); NITRITE URINE NEGATIVE (NEGATIVE); OCCULT BLOOD URINE NEGATIVE (NEGATIVE); PROTEIN URINE 1+ (NEGATIVE); SPECIFIC GRAVITY URINE 1.024 (1.005-1.030); UROBILINOGEN URINE 0.2 E.U./dL (0.2-1.0)
[2017-04-13 02:56] LABS: HEMATOCRIT. 28.1 % (42.0-52.0); HEMOGLOBIN. 9.1 g/dL (14.0-18.0); MEAN CORPUSCULAR HEMOGLOBIN 24.6 pg (28.0-32.0); MEAN CORPUSCULAR VOLUME 75.8 fL (80.0-94.0); MEAN PLATELET VOLUME 7.1 fl (7.4-10.4); PLATELET 226 x1000/uL (130-400); RED BLOOD CELL COUNT 3.71 mill/uL (4.7-6.1); RED CELL DISTRIBUTION WIDTH 22.3 % (11.6-14.6)
[2017-04-13 02:59] LABS: CHLORIDE 105 mEq/L (98-107)
[2017-04-13 03:08] LABS: CARBON DIOXIDE 31 mEq/L (21-32)
[2017-04-13 03:18] LABS: *AMPHETAMINES SCREEN URINE PRESUMTIVE POSITIVE (NEGATIVE); *BARBITURATES SCREEN URINE NEGATIVE (NEGATIVE); *BENZODIAZEPINES SCREEN URINE PRESUMTIVE POSITIVE (NEGATIVE); *COCAINE SCREEN URINE NEGATIVE (NEGATIVE); CANNABINOID URINE SCREEN PRESUMTIVE POSITIVE (NEGATIVE); METHADONE URINE SCREEN NEGATIVE (NEGATIVE); OPIATES URINE SCREEN NEGATIVE (NEGATIVE); PHENCYCLIDINE URINE SCREEN NEGATIVE (NEGATIVE)
[2017-04-13 03:21] VITALS: BP 148/95
[2017-04-13 07:27] LABS: PLATELET ESTIMATE NORMAL
== END 2017-04-13 05:32 | disposition home or self-care (01) ==
LOC: ER 22:20
DX: N39.0 Urinary tract infection, site not specified (principal); G89.29 Other chronic pain; K21.9 Gastro-esophageal reflux disease without esophagitis; M19.90 Unspecified osteoarthritis, unspecified site; I10 Essential (primary) hypertension; F12.10 Cannabis abuse, uncomplicated; Z98.890 Other specified postprocedural states; Z85.79 Personal history of other malignant neoplasms of lymphoid, hematopoietic and related tissues
CPT/HCPCS: 36415; 80053; 80305; 81001; 85025; 96372; 99284; J1885

== ENCOUNTER 2017-05-03 19:34 | Emergency (ER) | payer OTHER | END 2017-05-03 20:45 | disposition left against medical advice (07) | LOC: ER 19:34 | DX: Z04.8 Encounter for examination and observation for other specified reasons (principal); Z53.21 Procedure and treatment not carried out due to patient leaving prior to being seen by health care provider ==

== ENCOUNTER 2017-05-15 22:10 | Emergency (ER) | payer OTHER | END 2017-05-15 22:42 | disposition left against medical advice (07) | LOC: ER 22:10 | DX: Z00.8 Encounter for other general examination (principal); Z53.21 Procedure and treatment not carried out due to patient leaving prior to being seen by health care provider ==

== ENCOUNTER 2017-09-12 00:19 | Emergency (ER) | payer OTHER ==
[~2017-09-12] VITALS: Ht 170.2 cm; Wt 65.0 kg
[~2017-09-12 00:19] MED LIST changes: -HYDR-4134 PO; -HYDR-519 PO; -LORA1TAB PO; -NAP5EC PO; -NIFE30TA94 PO; -QUET50TA PO
[2017-09-12 03:40] VITALS: BP 151/97
[2017-09-12] MEDS ORDERED: KETOROLAC 30MG/ML VIAL IM ONE (05:00)
== END 2017-09-12 06:19 | disposition home or self-care (01) ==
LOC: ER 00:19
DX: M79.671 Pain in right foot (principal); M79.672 Pain in left foot; M19.90 Unspecified osteoarthritis, unspecified site; I10 Essential (primary) hypertension; K21.9 Gastro-esophageal reflux disease without esophagitis; F12.10 Cannabis abuse, uncomplicated; D64.9 Anemia, unspecified; Z87.442 Personal history of urinary calculi; Z98.890 Other specified postprocedural states
CPT/HCPCS: 99282; J1885

== ENCOUNTER 2017-10-09 03:55 | Emergency (ER) | payer OTHER ==
[~2017-10-09] VITALS: Ht 170.2 cm; Wt 63.8 kg
[2017-10-09] MEDS ORDERED: DIPHENHYDRAMINE 25MG CAPSULE PO ONE (06:30)
[2017-10-09 06:50] LABS: CLARITY URINE CLEAR (CLEAR); COLOR URINE YELLOW (YELLOW); KETONES URINE NEGATIVE (NEGATIVE); LEUKOCYTE ESTERASE URINE NEGATIVE (NEGATIVE); NITRITE URINE NEGATIVE (NEGATIVE); OCCULT BLOOD URINE NEGATIVE (NEGATIVE); PH URINE 7.5 (4.5-8.0); PROTEIN URINE NEGATIVE (NEGATIVE); SPECIFIC GRAVITY URINE 1.015 (1.005-1.030)
[2017-10-09 07:31] LABS: HEMATOCRIT. 23.7 % (42.0-52.0); HEMOGLOBIN. 7.4 g/dL (14.0-18.0); MEAN CORPUSCULAR HEMOGLOBIN 23.2 pg (28.0-32.0); MEAN PLATELET VOLUME 7.1 fl (7.4-10.4); PLATELET 688 x1000/uL (130-400); RED BLOOD CELL COUNT 3.21 mill/uL (4.7-6.1); RED CELL DISTRIBUTION WIDTH 21.8 % (11.6-14.6)
[2017-10-09 07:32] LABS: CHLORIDE 99 mEq/L (98-107)
[2017-10-09 08:00] VITALS: BP 157/100
[2017-10-09 08:14] LABS: NUCLEATED RED BLOOD CELLS 19 /100 WBC; PLATELET ESTIMATE INCREASED
[2017-10-09] MEDS ORDERED: SODIUM CHLORIDE 0.9% 1,000 ML IV ONE (09:30)
[2017-10-09] MEDS ORDERED: DIPHENHYDRAMINE 25MG CAPSULE PO PRN (09:45)
[2017-10-09] MEDS ORDERED: DIPHENHYDRAMINE HCL/ZINC ACET 28 GM CREAM TOP PRN (09:45)
[2017-10-09] MEDS ORDERED: IPRATROPIUM/ALBUTEROL 0.5-3(2.5)MG/3ML NEB HHN PRN (09:45)
[2017-10-09] MEDS ORDERED: CLONIDINE 0.1MG TABLET PO PRN (09:45)
[2017-10-09] MEDS ORDERED: ONDANSETRON HCL 4MG/2ML VIAL IV PRN (09:45)
[2017-10-09] MEDS ORDERED: HYDROMORPHONE HCL/PF 2MG/ML CPJ IM PRN (09:45)
[2017-10-09] MEDS ORDERED: FAMOTIDINE 20MG TABLET PO SCH (21:00)
[2017-10-10 11:59] LABS: *BARBITURATES SCREEN URINE NEGATIVE (NEGATIVE); *BENZODIAZEPINES SCREEN URINE NEGATIVE (NEGATIVE); CANNABINOID URINE SCREEN PRESUMTIVE POSITIVE (NEGATIVE)
[2017-10-10 12:00] LABS: *AMPHETAMINES SCREEN URINE PRESUMTIVE POSITIVE (NEGATIVE); *COCAINE SCREEN URINE NEGATIVE (NEGATIVE); OPIATES URINE SCREEN NEGATIVE (NEGATIVE)
[2017-10-10 12:01] LABS: METHADONE URINE SCREEN NEGATIVE (NEGATIVE); PHENCYCLIDINE URINE SCREEN NEGATIVE (NEGATIVE)
== END 2017-10-09 10:00 | disposition left against medical advice (07) ==
LOC: ER 03:55
DX: R30.0 Dysuria (principal); R21 Rash and other nonspecific skin eruption; L29.9 Pruritus, unspecified; I10 Essential (primary) hypertension; M19.90 Unspecified osteoarthritis, unspecified site; F12.10 Cannabis abuse, uncomplicated
CPT/HCPCS: 36415; 80053; 80305; 81003; 85025; 87086; 99284; J7030; Z7610; Q0163

== ENCOUNTER 2017-12-08 12:02 | Emergency (ER) | payer OTHER ==
[~2017-12-08] VITALS: Ht 170.2 cm; Wt 66.0 kg
[2017-12-08 14:37] LABS: HEMATOCRIT. 22.9 % (42.0-52.0); HEMOGLOBIN. 7.1 g/dL (14.0-18.0); MEAN CORPUSCULAR HEMOGLOBIN 21.7 pg (28.0-32.0); MEAN CORPUSCULAR VOLUME 69.7 fL (80.0-94.0); PLATELET 606 x1000/uL (130-400); RED BLOOD CELL COUNT 3.29 mill/uL (4.7-6.1); RED CELL DISTRIBUTION WIDTH 19.1 % (11.6-14.6)
[2017-12-08 14:38] LABS: CLARITY URINE CLEAR (CLEAR); COLOR URINE YELLOW (YELLOW); KETONES URINE NEGATIVE (NEGATIVE); LEUKOCYTE ESTERASE URINE NEGATIVE (NEGATIVE); NITRITE URINE NEGATIVE (NEGATIVE); OCCULT BLOOD URINE NEGATIVE (NEGATIVE); PROTEIN URINE NEGATIVE (NEGATIVE); SPECIFIC GRAVITY URINE 1.014 (1.005-1.030)
[2017-12-08 14:39] LABS: CHLORIDE 101 mEq/L (98-107); PROTHROMBIN TIME 10.6 sec (9.4-11.6)
[2017-12-08 14:45] LABS: ETHANOL BLOOD 78 mg/dL
[2017-12-08 15:01] LABS: *AMPHETAMINES SCREEN URINE NEGATIVE (NEGATIVE); *BARBITURATES SCREEN URINE NEGATIVE (NEGATIVE); *BENZODIAZEPINES SCREEN URINE NEGATIVE (NEGATIVE); *COCAINE SCREEN URINE NEGATIVE (NEGATIVE); METHADONE URINE SCREEN NEGATIVE (NEGATIVE); OPIATES URINE SCREEN NEGATIVE (NEGATIVE)
[2017-12-08 15:03] LABS: CANNABINOID URINE SCREEN PRESUMTIVE POSITIVE (NEGATIVE); PHENCYCLIDINE URINE SCREEN NEGATIVE (NEGATIVE)
[2017-12-08 15:11] LABS: NUCLEATED RED BLOOD CELLS 9 /100 WBC; PLATELET ESTIMATE INCREASED
[2017-12-08] MEDS ORDERED: MORPHINE SULFATE 10 MG/ML CPJ IM ONE (15:30)
[2017-12-08 17:00] VITALS: BP 120/87
== END 2017-12-08 17:20 | disposition home or self-care (01) ==
LOC: ER 12:43
DX: C95.10 Chronic leukemia of unspecified cell type not having achieved remission (principal); I10 Essential (primary) hypertension; F12.10 Cannabis abuse, uncomplicated; F17.200 Nicotine dependence, unspecified, uncomplicated; R79.1 Abnormal coagulation profile; Z79.899 Other long term (current) drug therapy
CPT/HCPCS: 36415; 71045; 80053; 80305; 81003; 85025; 85610; 93005; 96372; 99285; G0482; J2270

== ENCOUNTER 2017-12-29 11:32 | Emergency (ER) | payer OTHER ==
[~2017-12-29] VITALS: Ht 170.2 cm; Wt 64.0 kg
[2017-12-29 11:42] VITALS: BP 131/79
== END 2017-12-29 15:50 | disposition left against medical advice (07) ==
LOC: ER 11:32
DX: R51 Headache (principal); M79.1 Myalgia; Z53.21 Procedure and treatment not carried out due to patient leaving prior to being seen by health care provider

== ENCOUNTER 2018-01-06 11:01 | Emergency (ER) | payer OTHER ==
[~2018-01-06] VITALS: Ht 170.2 cm; Wt 71.0 kg
[2018-01-06 11:10] VITALS: BP 140/83
== END 2018-01-06 14:50 | disposition left against medical advice (07) ==
LOC: ER 11:01
DX: R30.0 Dysuria (principal); I10 Essential (primary) hypertension; L29.9 Pruritus, unspecified
CPT/HCPCS: 99281; J7030

== ENCOUNTER 2018-01-08 16:58 | Emergency (ER) | payer OTHER ==
[~2018-01-08] VITALS: Ht 170.2 cm; Wt 65.0 kg
[2018-01-08 18:02] VITALS: BP 135/78
[2018-01-08 18:52] LABS: CHLORIDE 101 mEq/L (98-107)
[2018-01-08 18:57] LABS: ETHANOL BLOOD 248 mg/dL
[2018-01-08 19:03] LABS: HEMATOCRIT. 24.1 % (42.0-52.0); HEMOGLOBIN. 7.4 g/dL (14.0-18.0); MEAN CORPUSCULAR HEMOGLOBIN 21.3 pg (28.0-32.0); MEAN CORPUSCULAR VOLUME 69.2 fL (80.0-94.0); MEAN PLATELET VOLUME 7.2 fl (7.4-10.4); PLATELET 918 x1000/uL (130-400); RED BLOOD CELL COUNT 3.48 mill/uL (4.7-6.1); RED CELL DISTRIBUTION WIDTH 20.3 % (11.6-14.6)
[2018-01-08 20:29] LABS: NUCLEATED RED BLOOD CELLS 11 /100 WBC
[2018-01-08 20:30] LABS: PLATELET ESTIMATE INCREASED
== END 2018-01-08 19:30 | disposition left against medical advice (07) ==
LOC: ER 18:44
DX: M79.1 Myalgia (principal); Z85.89 Personal history of malignant neoplasm of other organs and systems
CPT/HCPCS: 36415; 80053; 80307; 80329; 85025; 99284; G0482

== ENCOUNTER 2018-01-19 16:52 | Emergency (ER) | payer OTHER ==
[~2018-01-19] VITALS: Ht 172.7 cm; Wt 75.0 kg
[2018-01-19] MEDS ORDERED: MORPHINE SULFATE 4 MG/ML CPJ (NOT FOR IM USE) IV STA (18:01)
[2018-01-19] MEDS ORDERED: KETOROLAC 30MG/ML VIAL IV STA (18:01)
[2018-01-19] MEDS ORDERED: SODIUM CHLORIDE 0.9% 1,000 ML IV ONE (18:01)
[2018-01-19] MEDS ORDERED: ONDANSETRON HCL 4MG/2ML VIAL IV STA (18:01)
[2018-01-19 18:50] LABS: HEMATOCRIT. 24.2 % (42.0-52.0); HEMOGLOBIN. 7.2 g/dL (14.0-18.0); MEAN CORPUSCULAR HEMOGLOBIN 20.6 pg (28.0-32.0); MEAN PLATELET VOLUME 7.2 fl (7.4-10.4); PLATELET 961 x1000/uL (130-400); RED BLOOD CELL COUNT 3.51 mill/uL (4.7-6.1); RED CELL DISTRIBUTION WIDTH 19.9 % (11.6-14.6)
[2018-01-19 18:55] LABS: CHLORIDE 102 mEq/L (98-107)
[2018-01-19 18:57] LABS: CLARITY URINE CLEAR (CLEAR); COLOR URINE YELLOW (YELLOW); KETONES URINE NEGATIVE (NEGATIVE); LEUKOCYTE ESTERASE URINE NEGATIVE (NEGATIVE); NITRITE URINE NEGATIVE (NEGATIVE); OCCULT BLOOD URINE NEGATIVE (NEGATIVE); PROTEIN URINE NEGATIVE (NEGATIVE); SPECIFIC GRAVITY URINE 1.008 (1.005-1.030); UROBILINOGEN URINE 0.2 E.U./dL (0.2-1.0)
[2018-01-19 18:57] LABS: PARTIAL THROMBOPLASTIN TIME 29.2 sec (23.4-31.0); PROTHROMBIN TIME 10.6 sec (9.4-11.6)
[2018-01-19 19:01] LABS: ETHANOL BLOOD 217 mg/dL
[2018-01-19 19:07] LABS: *BARBITURATES SCREEN URINE NEGATIVE (NEGATIVE)
[2018-01-19 19:08] LABS: *AMPHETAMINES SCREEN URINE PRESUMTIVE POSITIVE (NEGATIVE); *BENZODIAZEPINES SCREEN URINE NEGATIVE (NEGATIVE); *COCAINE SCREEN URINE NEGATIVE (NEGATIVE); METHADONE URINE SCREEN NEGATIVE (NEGATIVE); OPIATES URINE SCREEN NEGATIVE (NEGATIVE); PHENCYCLIDINE URINE SCREEN NEGATIVE (NEGATIVE)
[2018-01-19 19:09] LABS: CANNABINOID URINE SCREEN PRESUMTIVE POSITIVE (NEGATIVE)
[2018-01-19 19:43] LABS: NUCLEATED RED BLOOD CELLS 15 /100 WBC; PLATELET ESTIMATE MARKEDLY INCREASED
[2018-01-19 21:20] VITALS: BP 130/82
== END 2018-01-19 21:26 | disposition home or self-care (01) ==
LOC: ER 16:52
DX: T51.91XA Toxic effect of unspecified alcohol, accidental (unintentional), initial encounter (principal); C95.90 Leukemia, unspecified not having achieved remission; M79.1 Myalgia; F15.10 Other stimulant abuse, uncomplicated; Y92.89 Other specified places as the place of occurrence of the external cause; F12.10 Cannabis abuse, uncomplicated; I10 Essential (primary) hypertension
CPT/HCPCS: 36415; 80053; 80305; 81003; 83690; 83880; 84484; 85025; 85610; 85730; 93005; 96374; 96375; 99284; G0482; J1885; J2270; J2405; J7030

== ENCOUNTER 2018-01-21 07:38 | Emergency (ER) | payer OTHER ==
[~2018-01-21] VITALS: Ht 170.2 cm; Wt 61.8 kg
[2018-01-21 08:25] VITALS: BP 133/94
== END 2018-01-21 09:47 | disposition left against medical advice (07) ==
LOC: ER 07:38
DX: Z53.21 Procedure and treatment not carried out due to patient leaving prior to being seen by health care provider (principal); I10 Essential (primary) hypertension; M19.90 Unspecified osteoarthritis, unspecified site; Z85.9 Personal history of malignant neoplasm, unspecified

== ENCOUNTER 2018-01-22 11:09 | Emergency (ER) | payer OTHER ==
[~2018-01-22] VITALS: Ht 170.2 cm; Wt 65.0 kg
[2018-01-22 11:35] LABS: CLARITY URINE CLEAR (CLEAR); COLOR URINE YELLOW (YELLOW); KETONES URINE NEGATIVE (NEGATIVE); LEUKOCYTE ESTERASE URINE NEGATIVE (NEGATIVE); NITRITE URINE NEGATIVE (NEGATIVE); OCCULT BLOOD URINE NEGATIVE (NEGATIVE); PH URINE 5.5 (4.5-8.0); PROTEIN URINE NEGATIVE (NEGATIVE); SPECIFIC GRAVITY URINE 1.007 (1.005-1.030); UROBILINOGEN URINE 0.2 E.U./dL (0.2-1.0)
[2018-01-22] MEDS ORDERED: LORAZEPAM 1MG TABLET PO ONE (13:00)
[2018-01-22] MEDS ORDERED: KETOROLAC 60MG/2ML VIAL IM ONE (13:00)
[2018-01-22 13:47] VITALS: BP 138/95
== END 2018-01-22 13:54 | disposition home or self-care (01) ==
LOC: ER 11:44
DX: R30.0 Dysuria (principal); M19.90 Unspecified osteoarthritis, unspecified site; D64.9 Anemia, unspecified; I10 Essential (primary) hypertension; F12.10 Cannabis abuse, uncomplicated; Z85.6 Personal history of leukemia
CPT/HCPCS: 81003; 96372; 99283; J1885

== ENCOUNTER 2018-01-26 19:18 | Emergency (ER) | payer OTHER | END 2018-01-26 19:36 | disposition left against medical advice (07) | LOC: ER 19:18 | DX: R10.9 Unspecified abdominal pain (principal); M79.1 Myalgia; Z53.21 Procedure and treatment not carried out due to patient leaving prior to being seen by health care provider ==

== ENCOUNTER 2018-02-18 15:28 | Emergency (ER) | payer OTHER ==
[~2018-02-18] VITALS: Ht 177.8 cm; Wt 63.0 kg
[2018-02-18 15:36] VITALS: BP 125/82
== END 2018-02-18 20:31 | disposition left against medical advice (07) ==
LOC: ER 17:10
DX: Z53.21 Procedure and treatment not carried out due to patient leaving prior to being seen by health care provider (principal)

== ENCOUNTER 2018-02-20 23:48 | Emergency (ER) | payer OTHER | END 2018-02-21 01:34 | disposition left against medical advice (07) | LOC: ER 23:48 | DX: R10.9 Unspecified abdominal pain (principal); Z53.21 Procedure and treatment not carried out due to patient leaving prior to being seen by health care provider ==

== ENCOUNTER 2018-03-17 09:00 | Emergency (ER) | payer OTHER ==
[~2018-03-17] VITALS: Ht 170.2 cm; Wt 70.0 kg
[2018-03-17] MEDS ORDERED: MORPHINE SULFATE 4 MG/ML CPJ (NOT FOR IM USE) IV ONE (10:00)
[2018-03-17 10:40] LABS: HEMATOCRIT. 23.4 % (42.0-52.0); HEMOGLOBIN. 7.2 g/dL (14.0-18.0); MEAN CORPUSCULAR HEMOGLOBIN 23.3 pg (28.0-32.0); MEAN CORPUSCULAR VOLUME 75.9 fL (80.0-94.0); MEAN PLATELET VOLUME 7.7 fl (7.4-10.4); PLATELET 465 x1000/uL (130-400); RED BLOOD CELL COUNT 3.08 mill/uL (4.7-6.1)
[2018-03-17 10:42] LABS: CHLORIDE 88 mEq/L (98-107)
[2018-03-17 10:46] LABS: PROTHROMBIN TIME 10.3 sec (9.1-11.1)
[2018-03-17 11:18] LABS: NUCLEATED RED BLOOD CELLS 10 /100 WBC; PLATELET ESTIMATE SLIGHTLY INCREASED
[2018-03-17] MEDS: MORPHINE SULFATE 4 MG/ML CPJ (NOT FOR IM USE) IV ONE ×2 (13:08→13:17)
[2018-03-17 13:17] VITALS: BP 140/74
== END 2018-03-17 13:24 | disposition left against medical advice (07) ==
LOC: ER 09:00
DX: M79.604 Pain in right leg (principal); I10 Essential (primary) hypertension; M19.90 Unspecified osteoarthritis, unspecified site; D72.829 Elevated white blood cell count, unspecified; F12.10 Cannabis abuse, uncomplicated; Z85.79 Personal history of other malignant neoplasms of lymphoid, hematopoietic and related tissues; Z87.828 Personal history of other (healed) physical injury and trauma
CPT/HCPCS: 36415; 80053; 83605; 85025; 85610; 87040; 96374; 99284; J2270; Z7610

== ENCOUNTER 2018-03-18 21:16 | Inpatient (IN) | payer OTHER ==
[~2018-03-18] VITALS: Ht 162.6 cm; Wt 63.5 kg
[2018-03-19] MEDS ORDERED: MORPHINE SULFATE 4 MG/ML CPJ (NOT FOR IM USE) IV STA (00:54)
[2018-03-19] MEDS ORDERED: SODIUM CHLORIDE 0.9% 1,000 ML IV ONE ×2 (00:54→03:00)
[2018-03-19 02:03] LABS: MEAN CORPUSCULAR HEMOGLOBIN 24.1 pg (28.0-32.0); MEAN CORPUSCULAR VOLUME 76.1 fL (80.0-94.0); MEAN PLATELET VOLUME 7.9 fl (7.4-10.4); PLATELET 331 x1000/uL (130-400); RED BLOOD CELL COUNT 2.63 mill/uL (4.7-6.1); RED CELL DISTRIBUTION WIDTH 23.7 % (11.6-14.6)
[2018-03-19 02:08] LABS: HEMOGLOBIN. 6.3 g/dL (14.0-18.0)
[2018-03-19 02:50] LABS: CHLORIDE 84 mEq/L (98-107)
[2018-03-19 02:53] LABS: NUCLEATED RED BLOOD CELLS 19 /100 WBC; PLATELET ESTIMATE NORMAL
[2018-03-19] MEDS ORDERED: IOHEXOL-300 100 ML BOTTLE ONE (03:22)
[2018-03-19 10:00] VITALS: BP 135/81
[2018-03-19 11:00] VITALS: BP 135/81
[2018-03-19] MEDS: SODIUM CHLORIDE 0.9% 1,000 ML IV SCH ×2 (11:51→21:12)
[2018-03-19] MEDS: MORPHINE SULFATE 4 MG/ML CPJ (NOT FOR IM USE) IV PRN ×2 (11:52→20:03)
[2018-03-19 12:00] VITALS: BP 128/83
[2018-03-19] MEDS: CHLORDIAZEPOXIDE 25MG CAPSULE PO SCH ×2 (12:57→21:10)
[2018-03-19] MEDS: THIAMINE HCL 100MG TABLET PO SCH (12:57)
[2018-03-19] MEDS: FOLIC ACID 1MG TABLET PO SCH (12:57)
[2018-03-19 14:00] VITALS: BP 128/84
[2018-03-19 14:16] VITALS: BP 128/75
[2018-03-19 18:09] LABS: PARTIAL THROMBOPLASTIN TIME 34.2 sec (23.4-31.0); PROTHROMBIN TIME 10.5 sec (9.1-11.1)
[2018-03-19 19:54] VITALS: BP 141/73
[2018-03-19 20:24] LABS: HEMATOCRIT 25.8 % (42.0-52.0); HEMOGLOBIN 8.2 g/dL (14.0-18.0)
[2018-03-19] MEDS ORDERED: DIPHENHYDRAMINE 50MG/ML VIAL IV PRN (20:45)
[2018-03-19] MEDS: FAMOTIDINE 20MG TABLET PO SCH (21:10)
[2018-03-20] VITALS: BP 136/79
[2018-03-20] MEDS: HYDROCODONE/ACETAMINOPHEN 10/325MG TABLET PO PRN ×3 (00:23→15:15)
[2018-03-20 02:59] VITALS: BP 123/73
[2018-03-20] MEDS: MORPHINE SULFATE 4 MG/ML CPJ (NOT FOR IM USE) IV PRN ×3 (03:06→12:45)
[2018-03-20 04:00] VITALS: BP 129/77
[2018-03-20] MEDS: CHLORDIAZEPOXIDE 25MG CAPSULE PO SCH ×2 (06:52→15:15)
[2018-03-20] MEDS: SODIUM CHLORIDE 0.9% 1,000 ML IV SCH (06:53)
[2018-03-20 07:30] LABS: HEMATOCRIT 23.9 % (42.0-52.0); HEMOGLOBIN 7.9 g/dL (14.0-18.0); MEAN CORPUSCULAR HEMOGLOBIN 26.1 pg (28.0-32.0); MEAN CORPUSCULAR VOLUME 79.4 fL (80.0-94.0); PLATELET 291 x1000/uL (130-400); RED BLOOD CELL COUNT 3.01 mill/uL (4.7-6.1); RED CELL DISTRIBUTION WIDTH 23.3 % (11.6-14.6)
[2018-03-20 07:46] LABS: CHLORIDE 98 mEq/L (98-107)
[2018-03-20 08:00] VITALS: BP 135/80
[2018-03-20] MEDS ORDERED: MULTIVITAMINS,THER W-MINERALS TABLET PO SCH (09:00)
[2018-03-20] MEDS: THIAMINE HCL 100MG TABLET PO SCH (09:32)
[2018-03-20] MEDS: FOLIC ACID 1MG TABLET PO SCH (09:32)
[2018-03-20] MEDS: FAMOTIDINE 20MG TABLET PO SCH (09:32)
[2018-03-20 12:00] VITALS: BP 127/85
[2018-03-20 16:00] VITALS: BP 136/86
== END 2018-03-20 17:00 | disposition left against medical advice (07) | DRG 384 ==
LOC: ER 23:15 → 7WST 03-19 02:39 → EDBEDREQ 03-19 02:47 → ENRESERV 03-19 04:47
PROVIDERS: ADMIT Internal Medicine; ATTEND Internal Medicine
DX: S70.11XA Contusion of right thigh, initial encounter (principal); C92.10 Chronic myeloid leukemia, BCR/ABL-positive, not having achieved remission; D68.9 Coagulation defect, unspecified; E44.0 Moderate protein-calorie malnutrition; E87.8 Other disorders of electrolyte and fluid balance, not elsewhere classified; E87.1 Hypo-osmolality and hyponatremia; I10 Essential (primary) hypertension; K21.9 Gastro-esophageal reflux disease without esophagitis; D64.9 Anemia, unspecified; F15.90 Other stimulant use, unspecified, uncomplicated; F12.90 Cannabis use, unspecified, uncomplicated; F10.920 Alcohol use, unspecified with intoxication, uncomplicated; W50.1XXA Accidental kick by another person, initial encounter; Y93.89 Activity, other specified; Y92.89 Other specified places as the place of occurrence of the external cause; Z68.24 Body mass index [BMI] 24.0-24.9, adult; Y99.8 Other external cause status; Z87.891 Personal history of nicotine dependence; Z79.899 Other long term (current) drug therapy
CPT/HCPCS: 36415; 73700; 80048; 80053; 85014; 85018; 85025; 85027; 85610; 85730; 86850; 86900; 86920; 96361; 96374; 97161; 99285; J1200; J2270; J7030; J7050; P9016; Q9967

== ENCOUNTER 2018-03-21 21:29 | Emergency (ER) | payer OTHER ==
[~2018-03-21] VITALS: Ht 177.8 cm; Wt 59.0 kg
[2018-03-21 21:41] VITALS: BP 132/85
== END 2018-03-21 22:23 | disposition left against medical advice (07) ==
LOC: ER 21:29
DX: M79.604 Pain in right leg (principal); Z53.21 Procedure and treatment not carried out due to patient leaving prior to being seen by health care provider

== ENCOUNTER 2018-03-22 07:04 | Emergency (ER) | payer OTHER ==
[~2018-03-22] VITALS: Ht 170.2 cm; Wt 64.0 kg
[2018-03-22] MEDS ORDERED: HYDROCODONE/ACETAMINOPHEN 5/325MG TABLET PO ONE (08:15)
[2018-03-22 09:16] LABS: HEMATOCRIT. 28.9 % (42.0-52.0); HEMOGLOBIN. 9.1 g/dL (14.0-18.0); MEAN CORPUSCULAR HEMOGLOBIN 25.5 pg (28.0-32.0); MEAN CORPUSCULAR VOLUME 80.6 fL (80.0-94.0); MEAN PLATELET VOLUME 7.4 fl (7.4-10.4); PLATELET 344 x1000/uL (130-400); RED BLOOD CELL COUNT 3.58 mill/uL (4.7-6.1); RED CELL DISTRIBUTION WIDTH 23.8 % (11.6-14.6)
[2018-03-22 09:17] LABS: CHLORIDE 95 mEq/L (98-107)
[2018-03-22 09:20] LABS: INR 1.1; PROTHROMBIN TIME 10.9 sec (9.1-11.1)
[2018-03-22] MEDS ORDERED: ONDANSETRON HCL 4MG/2ML INJ IV STA (10:00)
[2018-03-22] MEDS ORDERED: MORPHINE SULFATE 4 MG/ML CPJ (NOT FOR IM USE) IV STA (10:00)
[2018-03-22 10:10] LABS: NUCLEATED RED BLOOD CELLS 6 /100 WBC; PLATELET ESTIMATE NORMAL
[2018-03-22 11:25] VITALS: BP 148/89
== END 2018-03-22 11:40 | disposition short-term general hospital (02) ==
LOC: ER 07:50 → CANBEDREQ 12:34
DX: S70.11XA Contusion of right thigh, initial encounter (principal); R60.0 Localized edema; M19.90 Unspecified osteoarthritis, unspecified site; I10 Essential (primary) hypertension; F12.10 Cannabis abuse, uncomplicated; E87.1 Hypo-osmolality and hyponatremia; Z87.19 Personal history of other diseases of the digestive system; Z98.890 Other specified postprocedural states; Z87.442 Personal history of urinary calculi; Z85.79 Personal history of other malignant neoplasms of lymphoid, hematopoietic and related tissues; Y08.89XA Assault by other specified means, initial encounter; Y93.89 Activity, other specified; Y92.89 Other specified places as the place of occurrence of the external cause
CPT/HCPCS: 36415; 80053; 83605; 83880; 85025; 85610; 93005; 93970; 96374; 96375; 99285; J2270; J2405; Z7610

== ENCOUNTER 2018-03-30 21:20 | Emergency (ER) | payer OTHER ==
[~2018-03-30] VITALS: Ht 170.2 cm; Wt 61.0 kg
[2018-03-31 05:05] VITALS: BP 110/81
== END 2018-03-31 06:08 | disposition left against medical advice (07) ==
LOC: ER 21:20
DX: R53.1 Weakness (principal); Z53.21 Procedure and treatment not carried out due to patient leaving prior to being seen by health care provider

== ENCOUNTER 2018-04-01 00:53 | Emergency (ER) | payer OTHER ==
[~2018-04-01] VITALS: Ht 170.2 cm; Wt 64.0 kg
[2018-04-01 03:12] LABS: CHLORIDE 96 mEq/L (98-107)
[2018-04-01 03:35] LABS: CLARITY URINE CLEAR (CLEAR); COLOR URINE YELLOW (YELLOW); KETONES URINE NEGATIVE (NEGATIVE); LEUKOCYTE ESTERASE URINE NEGATIVE (NEGATIVE); NITRITE URINE NEGATIVE (NEGATIVE); OCCULT BLOOD URINE 3+ (NEGATIVE); PH URINE 5.5 (4.5-8.0); PROTEIN URINE TRACE (NEGATIVE); SPECIFIC GRAVITY URINE 1.014 (1.005-1.030); UROBILINOGEN URINE 0.2 E.U./dL (0.2-1.0)
[2018-04-01] MEDS: KETOROLAC 60MG/2ML VIAL IM NR ×2 (03:59→05:48)
[2018-04-01 05:48] VITALS: BP 118/72
== END 2018-04-01 06:00 | disposition home or self-care (01) ==
LOC: ER 00:53
DX: M19.90 Unspecified osteoarthritis, unspecified site (principal); R25.2 Cramp and spasm; F12.10 Cannabis abuse, uncomplicated
CPT/HCPCS: 36415; 80053; 81003; 96372; 99284; J1885

== ENCOUNTER 2018-04-09 23:58 | Emergency (ER) | payer OTHER ==
[~2018-04-09] VITALS: Ht 170.2 cm; Wt 88.0 kg
[2018-04-10 03:05] VITALS: BP 113/74
== END 2018-04-10 03:15 | disposition home or self-care (01) ==
LOC: ER 23:58
DX: G89.29 Other chronic pain (principal); Z85.6 Personal history of leukemia; Z85.830 Personal history of malignant neoplasm of bone
CPT/HCPCS: 99281

== ENCOUNTER 2018-04-13 01:43 | Emergency (ER) | payer OTHER ==
[~2018-04-13] VITALS: Ht 165.1 cm; Wt 73.0 kg
[2018-04-13 01:59] VITALS: BP 156/103
== END 2018-04-13 04:15 | disposition left against medical advice (07) ==
LOC: ER 01:43
DX: R30.9 Painful micturition, unspecified (principal); Z53.21 Procedure and treatment not carried out due to patient leaving prior to being seen by health care provider

== ENCOUNTER 2018-04-13 16:41 | Emergency (ER) | payer OTHER ==
[~2018-04-13] VITALS: Ht 170.2 cm; Wt 58.5 kg
[2018-04-13 16:54] VITALS: BP 133/91
== END 2018-04-13 18:30 | disposition left against medical advice (07) ==
LOC: ER 16:41
DX: R30.0 Dysuria (principal); M79.10 Myalgia, unspecified site; F12.10 Cannabis abuse, uncomplicated; F17.200 Nicotine dependence, unspecified, uncomplicated; Z53.21 Procedure and treatment not carried out due to patient leaving prior to being seen by health care provider

== ENCOUNTER 2018-04-17 04:39 | Emergency (ER) | payer OTHER ==
[~2018-04-17] VITALS: Ht 170.2 cm; Wt 64.0 kg
[2018-04-17 04:53] VITALS: BP 130/86
== END 2018-04-17 07:58 | disposition left against medical advice (07) ==
LOC: ER 07:46
DX: Z53.21 Procedure and treatment not carried out due to patient leaving prior to being seen by health care provider (principal); K21.9 Gastro-esophageal reflux disease without esophagitis; I10 Essential (primary) hypertension; Z85.6 Personal history of leukemia

== ENCOUNTER 2018-04-18 23:54 | Emergency (ER) | payer OTHER ==
[~2018-04-18] VITALS: Ht 170.2 cm; Wt 64.0 kg
[2018-04-19 00:49] VITALS: BP 148/95
== END 2018-04-19 02:36 | disposition left against medical advice (07) ==
LOC: ER 23:54
DX: Z53.21 Procedure and treatment not carried out due to patient leaving prior to being seen by health care provider (principal)

== ENCOUNTER 2018-06-06 22:10 | Inpatient (IN) | payer OTHER ==
[~2018-06-06] VITALS: Ht 170.2 cm; Wt 58.5 kg
[2018-06-07] MEDS ORDERED: ONDANSETRON HCL 4MG/2ML INJ IV STA (01:49)
[2018-06-07] MEDS ORDERED: MORPHINE SULFATE 4 MG/ML CPJ (NOT FOR IM USE) IV STA (01:49)
[2018-06-07] MEDS ORDERED: SODIUM CHLORIDE 0.9% 1000ML BAG (SEPSIS BOLUS) IV ONE (02:00)
[2018-06-07 02:24] LABS: HEMATOCRIT. 21.9 % (42.0-52.0); HEMOGLOBIN. 7.2 g/dL (14.0-18.0); MEAN CORPUSCULAR HEMOGLOBIN 25.4 pg (28.0-32.0); MEAN CORPUSCULAR VOLUME 77.4 fL (80.0-94.0); MEAN PLATELET VOLUME 6.2 fl (7.4-10.4); RED BLOOD CELL COUNT 2.83 mill/uL (4.7-6.1); RED CELL DISTRIBUTION WIDTH 20.5 % (11.6-14.6)
[2018-06-07 02:29] LABS: CHLORIDE 100 mEq/L (98-107); PLATELET 1074 x1000/uL (130-400)
[2018-06-07 02:32] LABS: INR 1.1; PROTHROMBIN TIME 10.8 sec (9.1-11.1)
[2018-06-07 03:29] LABS: CLARITY URINE CLEAR (CLEAR); COLOR URINE YELLOW (YELLOW); KETONES URINE NEGATIVE (NEGATIVE); LEUKOCYTE ESTERASE URINE NEGATIVE (NEGATIVE); NITRITE URINE NEGATIVE (NEGATIVE); OCCULT BLOOD URINE NEGATIVE (NEGATIVE); PROTEIN URINE NEGATIVE (NEGATIVE); SPECIFIC GRAVITY URINE 1.022 (1.005-1.030); UROBILINOGEN URINE 0.2 E.U./dL (0.2-1.0)
[2018-06-07] MEDS ORDERED: MORPHINE SULFATE 10 MG/ML CPJ IV ONE (03:30)
[2018-06-07] MEDS ORDERED: VANCOMYCIN 1 G PREMIX 200 ML IV SCH (05:15)
[2018-06-07] MEDS ORDERED: PIPERACILLIN/TAZOBACTAM 3.375GM/50ML PREMIX IV ONE (05:15)
[2018-06-07] MEDS ORDERED: PIPERACILLIN/TAZ 3.375G PREMIX 50 ML IV NR (05:30)
[2018-06-07] MEDS ORDERED: ACETAMINOPHEN 325MG TABLET PO PRN (06:45)
[2018-06-07] MEDS ORDERED: CLONIDINE 0.1MG TABLET PO PRN (06:45)
[2018-06-07] MEDS ORDERED: ONDANSETRON HCL 4MG/2ML INJ IV PRN (06:45)
[2018-06-07] MEDS ORDERED: IPRATROPIUM/ALBUTEROL 0.5-3(2.5)MG/3ML NEB INH PRN (06:45)
[2018-06-07] MEDS ORDERED: HYDROCODONE/ACETAMINOPHEN 5/325MG TABLET PO PRN (06:45)
[2018-06-07 07:04] LABS: NUCLEATED RED BLOOD CELLS 2 /100 WBC; PLATELET ESTIMATE MARKEDLY INCREASED
[2018-06-07 08:59] VITALS: BP 152/86
[2018-06-07 09:00] VITALS: BP 152/86
[2018-06-07 12:00] VITALS: BP 160/88
[2018-06-07] MEDS ORDERED: HYDROCODONE/ACETAMINOPHEN 10/325MG TABLET PO PRN (12:45)
[2018-06-07] MEDS: HYDROMORPHONE HCL/PF 2MG/ML CPJ IV PRN ×2 (13:20→21:09)
[2018-06-07 13:27] LABS: T4 FREE 0.82 ng/dL (0.76-1.46)
[2018-06-07 14:18] LABS: FOLIC ACID (FOLATE) SERUM > 20.00 ng/mL (>5.38); VITAMIN B12 SERUM > 2000.0 pg/mL (211-911)
[2018-06-07] MEDS: CIPROFLOXACIN 0.3% OPHTH SOLN 2.5ML RIGHTEYE SCH ×3 (14:49→21:26)
[2018-06-07 15:19] LABS: FERRITIN 143 ng/mL (22-322)
[2018-06-07 16:00] VITALS: BP 131/82
[2018-06-07 20:00] VITALS: BP 133/85
[2018-06-07 22:05] VITALS: BP 130/70
[2018-06-08 08:22] LABS: HIV SCREEN 4G Non Reactive (Non Reactive)
== END 2018-06-07 23:11 | disposition short-term general hospital (02) | DRG 720 ==
LOC: ER 23:00 → 5WST 06-07 05:35 → ENRESERV 06-07 07:29
PROVIDERS: ADMIT Internal Medicine; ATTEND Internal Medicine
DX: A41.9 Sepsis, unspecified organism (principal); C92.10 Chronic myeloid leukemia, BCR/ABL-positive, not having achieved remission; L03.116 Cellulitis of left lower limb; D50.9 Iron deficiency anemia, unspecified; F15.90 Other stimulant use, unspecified, uncomplicated; B18.2 Chronic viral hepatitis C; F17.200 Nicotine dependence, unspecified, uncomplicated; H10.89 Other conjunctivitis; H54.61 Unqualified visual loss, right eye, normal vision left eye; E03.9 Hypothyroidism, unspecified; M19.90 Unspecified osteoarthritis, unspecified site; I10 Essential (primary) hypertension; K21.9 Gastro-esophageal reflux disease without esophagitis; N20.0 Calculus of kidney; Z59.0 Homelessness; Z87.442 Personal history of urinary calculi
CPT/HCPCS: 36415; 71045; 82607; 82728; 82746; 83540; 83550; 83605; 84145; 84439; 84481; 84484; 87389; 93005; 96361; 96374; 96375; 99285; J1170; J2270; J2405; J2543; J3370; J7030

== ENCOUNTER 2018-06-10 21:25 | Emergency (ER) | payer OTHER ==
[~2018-06-10] VITALS: Ht 170.2 cm; Wt 64.0 kg
[2018-06-11] MEDS ORDERED: KETOROLAC 60MG/2ML VIAL IM SCH (05:00)
[2018-06-11 05:17] LABS: CLARITY URINE CLEAR (CLEAR); COLOR URINE YELLOW (YELLOW); KETONES URINE NEGATIVE (NEGATIVE); LEUKOCYTE ESTERASE URINE NEGATIVE (NEGATIVE); NITRITE URINE NEGATIVE (NEGATIVE); OCCULT BLOOD URINE NEGATIVE (NEGATIVE); PROTEIN URINE NEGATIVE (NEGATIVE); SPECIFIC GRAVITY URINE 1.008 (1.005-1.030); UROBILINOGEN URINE 0.2 E.U./dL (0.2-1.0)
[2018-06-11] MEDS ORDERED: BACITRACIN ZINC OINT UDPKT TOP ONE (06:45)
[2018-06-11 07:00] VITALS: BP 150/85
== END 2018-06-11 07:37 | disposition home or self-care (01) ==
LOC: ER 21:25
DX: S00.83XA Contusion of other part of head, initial encounter (principal); R30.0 Dysuria; L03.116 Cellulitis of left lower limb; F12.10 Cannabis abuse, uncomplicated; Z98.890 Other specified postprocedural states; Y08.89XA Assault by other specified means, initial encounter; Y93.89 Activity, other specified; Y92.89 Other specified places as the place of occurrence of the external cause; Y99.8 Other external cause status
CPT/HCPCS: 76770; 81003; 96372; 99284; J1885

== ENCOUNTER 2018-08-19 14:30 | Emergency (ER) | payer OTHER ==
[~2018-08-19] VITALS: Ht 177.8 cm; Wt 75.0 kg
[2018-08-19 14:37] VITALS: BP 112/73
== END 2018-08-19 17:05 | disposition left against medical advice (07) ==
LOC: ER 14:30
DX: Z53.21 Procedure and treatment not carried out due to patient leaving prior to being seen by health care provider (principal)

== ENCOUNTER 2018-10-25 12:08 | Emergency (ER) | payer OTHER | END 2018-10-25 12:51 | disposition left against medical advice (07) | LOC: ER 12:08 | DX: Z53.21 Procedure and treatment not carried out due to patient leaving prior to being seen by health care provider (principal) ==

== ENCOUNTER 2018-12-20 01:43 | Emergency (ER) | payer OTHER ==
[~2018-12-20] VITALS: Ht 170.2 cm; Wt 69.0 kg
[2018-12-20 01:53] VITALS: BP 115/84
== END 2018-12-20 05:19 | disposition left against medical advice (07) ==
LOC: ER 01:43
DX: Z53.21 Procedure and treatment not carried out due to patient leaving prior to being seen by health care provider (principal)

== ENCOUNTER 2019-01-04 13:01 | Emergency (ER) | payer OTHER ==
[~2019-01-04] VITALS: Ht 162.6 cm; Wt 64.0 kg
[2019-01-04 13:05] VITALS: BP 149/96
== END 2019-01-04 14:33 | disposition left against medical advice (07) ==
LOC: ER 13:01
DX: M79.18 Myalgia, other site (principal); Z53.21 Procedure and treatment not carried out due to patient leaving prior to being seen by health care provider

== ENCOUNTER 2019-01-13 00:47 | Emergency (ER) | payer OTHER ==
[~2019-01-13] VITALS: Ht 170.2 cm; Wt 62.0 kg
[2019-01-13 02:31] VITALS: BP 143/85
== END 2019-01-13 03:00 | disposition left against medical advice (07) ==
LOC: ER 00:47
DX: Z53.21 Procedure and treatment not carried out due to patient leaving prior to being seen by health care provider (principal)

== ENCOUNTER 2019-01-13 20:47 | Emergency (ER) | payer OTHER ==
[~2019-01-13] VITALS: Ht 170.2 cm; Wt 62.0 kg
[2019-01-13 21:09] VITALS: BP 134/96
== END 2019-01-14 10:27 | disposition left against medical advice (07) ==
LOC: ER 01-14 08:54
DX: M79.606 Pain in leg, unspecified (principal); Z53.21 Procedure and treatment not carried out due to patient leaving prior to being seen by health care provider

== ENCOUNTER 2019-01-30 03:25 | Emergency (ER) | payer OTHER ==
[~2019-01-30] VITALS: Ht 170.2 cm; Wt 58.0 kg
[2019-01-30] MEDS ORDERED: KETOROLAC 60MG/2ML VIAL IM ONE (04:30)
[2019-01-30] MEDS ORDERED: AMOXICILLIN/POTASSIUM CLAVULANATE 875/125MG TAB PO ONE (04:30)
[2019-01-30 06:30] VITALS: BP 118/66
== END 2019-01-30 07:39 | disposition home or self-care (01) ==
LOC: ER 03:25
DX: T81.89XD Other complications of procedures, not elsewhere classified, subsequent encounter (principal); T81.30XD Disruption of wound, unspecified, subsequent encounter; M79.89 Other specified soft tissue disorders; F32.9 Major depressive disorder, single episode, unspecified; I10 Essential (primary) hypertension; F12.10 Cannabis abuse, uncomplicated; Z87.891 Personal history of nicotine dependence; Z85.830 Personal history of malignant neoplasm of bone; Z98.890 Other specified postprocedural states
CPT/HCPCS: 93971; 96372; 99284; J1885

== ENCOUNTER 2019-03-03 08:39 | Emergency (ER) | payer MEDICAID, OTHER ==
[~2019-03-03] VITALS: Ht 170.2 cm; Wt 63.0 kg
[2019-03-03] MEDS ORDERED: SULFAMETHOXAZOLE/TRIMETHOPRIM 800/160MG TABLET PO ONE (10:30)
[2019-03-03] MEDS ORDERED: CEPHALEXIN 250MG CAPSULE PO ONE (10:30)
[2019-03-03 11:24] LABS: HEMATOCRIT. 34.5 % (42.0-52.0); HEMOGLOBIN. 10.8 g/dL (14.0-18.0); MEAN CORPUSCULAR HEMOGLOBIN 28.1 pg (28.0-32.0); MEAN CORPUSCULAR VOLUME 89.7 fL (80.0-94.0); MEAN PLATELET VOLUME 8.7 fl (7.4-10.4); PLATELET 145 x1000/uL (130-400); RED BLOOD CELL COUNT 3.84 mill/uL (4.7-6.1); RED CELL DISTRIBUTION WIDTH 17.7 % (11.6-14.6)
[2019-03-03 11:31] LABS: CHLORIDE 100 mEq/L (98-107)
[2019-03-03] MEDS ORDERED: HYDROCODONE/ACETAMINOPHEN 5/325MG TABLET PO ONE (11:45)
[2019-03-03 12:27] LABS: PLATELET ESTIMATE NORMAL
[2019-03-03 13:27] LABS: NUCLEATED RED BLOOD CELLS 12 /100 WBC
[2019-03-03 16:20] VITALS: BP 133/80
== END 2019-03-03 17:30 | disposition home or self-care (01) ==
LOC: ER 08:39
DX: L97.929 Non-pressure chronic ulcer of unspecified part of left lower leg with unspecified severity (principal); C85.90 Non-Hodgkin lymphoma, unspecified, unspecified site; T16.2XXA Foreign body in left ear, initial encounter; X58.XXXA Exposure to other specified factors, initial encounter; Y92.9 Unspecified place or not applicable; Z85.6 Personal history of leukemia; Z85.830 Personal history of malignant neoplasm of bone
CPT/HCPCS: 36415; 69200; 80053; 83605; 85025; 87040; 99284; A4217; Z7610